=== PATIENT | female | born 1970 | race Caucasian/White ===

== ENCOUNTER 2016-12-16 15:22 | Inpatient (IN) | payer MEDICAID ==
[~2016-12-16] VITALS: Ht 165.1 cm; Wt 99.8 kg
[~2016-12-16 15:22] MED LIST: DILA100C PO; LORA-474 PO; PHEN100 PO
[2016-12-20] MEDS ORDERED: METRONIDAZOLE 500 MG/100 ML ISONTONIC SOLN IV SCH (06:15)
[2016-12-20] MEDS ORDERED: HEPARIN SODIUM - SQ 10,000 UNITS/ML VIAL SQ SCH (06:15)
[2016-12-20] MEDS ORDERED: METOPROLOL TARTRATE 25 MG TAB PO PRN (06:30)
[2016-12-20] MEDS ORDERED: LACTATED RINGER'S 1000 ML IV SCH (06:30)
[2016-12-20] MEDS ORDERED: SODIUM CHLORID 0.9% 500 ML IV SCH (06:30)
[2016-12-20] MEDS ORDERED: LEVOFLOXACIN 500 MG PREMIX INJ 100 ML IV SCH (06:30)
[2016-12-20] MEDS ORDERED: INSULIN HUMAN REGULAR 1,000 UNITS/10 ML VIAL SQ PRN (06:30)
[2016-12-20] MEDS ORDERED: ZOFR4TAB PO (06:40)
[2016-12-20] MEDS ORDERED: DEPA500T3 PO (06:40)
[2016-12-20] MEDS ORDERED: DILA100C PO (06:40)
[2016-12-20] MEDS ORDERED: NAPR220T95 PO (06:40)
[2016-12-20] MEDS ORDERED: PRIL20CA9 PO (06:40)
[2016-12-20] MEDS ORDERED: MORP1TAB24 PO (06:40)
[2016-12-20] MEDS ORDERED: LISI10TA3 PO (06:40)
[2016-12-20 06:50] VITALS: BP 105/70; PULSE 66; RESP 16; TEMP 98.2; O2SAT 98
[2016-12-20] MEDS ORDERED: LIDOCAINE 1%/EPINEPHrine 1:100,000 SOLN 30 ML VIAL ONE (06:56)
[2016-12-20] MEDS ORDERED: ARTIFICIAL TEARS OPTH OINT 3.5 APPLIC/3.5 GM TUBO ONE (07:19)
[2016-12-20] MEDS ORDERED: FAMOTIDINE 20 MG/2 ML VIAL ONE (07:19)
[2016-12-20] MEDS ORDERED: DEXAMETHASONE SOD PHOS 4 MG/ML VIAL ONE (07:20)
[2016-12-20] MEDS ORDERED: SUGAMMADEX SODIUM 200 MG/2 ML VIAL IV PUSH ONE ×2 (07:20)
[2016-12-20] MEDS ORDERED: MIDAZOLAM HCL 2 MG/2 ML VIAL ONE (07:20)
[2016-12-20] MEDS ORDERED: LACTATED RINGER'S 1000 ML INJ 1,000 ML IV ONE (12:00)
[2016-12-20] MEDS ORDERED: PROPOFOL 200 MG/20 ML AMP IV ONE (12:00)
[2016-12-20] MEDS ORDERED: VECURONIUM BROMIDE 10 MG VIAL IV ONE (12:00)
[2016-12-20] MEDS ORDERED: ONDANSETRON HCL 4 MG/2 ML VIAL IV PUSH ONE (12:00)
[2016-12-20] MEDS ORDERED: NORMOSOL R INJ 2,000 ML IV ONE (12:00)
[2016-12-20] MEDS ORDERED: NEOSTIGMINE 3 MG/3 ML SYR IV ONE (12:00)
[2016-12-20] MEDS ORDERED: FERRIC SUBSULFATE 8 ML TOP SOLN TOPICAL ONE (12:32)
[2016-12-20] MEDS ORDERED: diphenhydrAMINE HCL 25 MG CAP PO PRN (13:00)
[2016-12-20] MEDS ORDERED: NALOXONE HCL 0.4 MG/ML AMP IV PRN (13:00)
[2016-12-20] MEDS ORDERED: SODIUM CHLORIDE 0.9% FLUSH 5 ML FLUSH FLUSH PRN (13:00)
[2016-12-20] MEDS ORDERED: DO NOT ADM ANY ANTICOAGULANT DRUGS XX PRN (13:15)
[2016-12-20] MEDS ORDERED: *morphine SULFATE 8 MG/ML PERIprocedure ONLY ONE (13:50)
[2016-12-20] MEDS ORDERED: fentaNYL CITRATE 250 MCG/5 ML AMP ONE (13:53)
[2016-12-20] MEDS ORDERED: MORPHINE SULFATE 4 MG/ML INJ ONE (13:53)
[2016-12-20] MEDS: PCA - TOTAL MG MORPHINE DELIVERED PER SHIFT SCH ×2 (14:00→22:28)
[2016-12-20] MEDS: D5-1/2 NS + KCL 20 MEQ INJ 1,000 ML IV SCH ×2 (15:00→22:51)
[2016-12-20 15:54] LABS: HEMATOCRIT 37.4 % (35.0-46.0); MEAN CELL VOLUME 109.3 FL (80.0-100.0); MEAN CORPUSCULAR HEMOGLOBIN 36.6 PG (27.0-34.0); MEAN CORPUSCULAR HGB CONC 33.5 % (32.0-36.0); PLATELET COUNT 229 TH/MM3 (150-450); RED BLOOD COUNT 3.42 MIL/MM3 (4.00-5.30); RED CELL DISTRIBUTION WIDTH 15.4 % (11.6-17.2); REVIEW FLAG FINAL
[2016-12-20] MEDS: MORPHINE SULFATE 30 MG/30 ML PCA IV SCH (15:55)
[2016-12-20 16:19] LABS: BICARBONATE 23.5 MEQ/L (21.0-32.0); POTASSIUM 4.1 MEQ/L (3.5-5.1)
--- NOTE | 2016-12-20 17:18 | PD.ONC.PN ---
Subjective Subjective Remarks post op note pt seen in PACU awaiting bed FISCAL ANALYST for pain sleepy, wakens to voice Objective Data Date Time Temp Pulse Resp B/P Pulse Ox O2 Delivery O2 Flow Rate FiO2 12/20/16 16:00 94 16 127/89 100 Nasal Cannula 2 12/20/16 15:55 16 12/20/16 15:45 90 16 127/89 100 Nasal Cannula 2 12/20/16 15:30 95 16 143/92 100 Nasal Cannula 2 12/20/16 15:15 90 16 143/92 100 Nasal Cannula 2 12/20/16 15:00 90 16 142/87 100 Nasal Cannula 2 12/20/16 14:45 89 16 142/91 100 Nasal Cannula 2 12/20/16 14:30 90 16 145/92 100 Nasal Cannula 2 12/20/16 14:15 89 16 145/89 100 Nasal Cannula 2 12/20/16 14:00 88 16 143/91 100 Nasal Cannula 2 12/20/16 13:45 86 16 144/91 100 Nasal Cannula 2 12/20/16 13:32 98.0 87 16 144/91 100 Nasal Cannula 2 12/20/16 06:50 98.2 66 16 105/70 98 12/20/16 12/20/16 12/20/16 07:00 15:00 23:00 Intake Total 2200 ml Output Total 850 ml Balance 1350 ml Result Diagram: 12/20/16 1547 12/20/16 1547 Laboratory Results Laboratory Tests Test 12/20/16 12/20/16 12/20/16 12/20/16 06:30 10:05 10:13 15:47 Blood Type O POSITIVE O POSITIVE O POSITIVE Antibody Screen NEGATIVE Blood Bank Comment Crossmatch Leukocyte-Reduced Red Blood Cells White Blood Count 13.0 TH/MM3 Red Blood Count 3.42 MIL/MM3 Hemoglobin 12.5 GM/DL Hematocrit 37.4 % Mean Corpuscular Volume 109.3 FL Mean Corpuscular Hemoglobin 36.6 PG Mean Corpuscular Hemoglobin 33.5 % Concent Red Cell Distribution Width 15.4 % Platelet Count 229 TH/MM3 Mean Platelet Volume 8.3 FL Sodium Level 140 MEQ/L Potassium Level 4.1 MEQ/L Chloride Level 106 MEQ/L Carbon Dioxide Level 23.5 MEQ/L Anion Gap 11 MEQ/L Blood Urea Nitrogen 8 MG/DL Creatinine 0.95 MG/DL Estimat Glomerular Filtration 63 ML/MIN Rate Random Glucose 169 MG/DL Calcium Level 8.1 MG/DL Administered Medications Medications (Trade) Dose Ordered Sig/Etienne Route PRN Reason Start Time Stop Time Status Last Admin Dose Admin Potassium Chloride/Dextrose/ Sod Cl (D5-1/2 NS + KCl 20 Meq Inj) 1,000 ml @ 100 mls/hr Q10H IV 12/20/16 12:51 12/20/16 15:00 Morphine Sulfate (Morphine 1 Mg/ ml FISCAL ANALYST) 30 mg UNSCH IV 12/20/16 13:00 12/20/16 15:55 Objective Remarks GENERAL: Well-nourished, well-developed patient. SKIN: Warm and dry. HEAD: Normocephalic. EYES: No scleral icterus. No injection or drainage. CARDIOVASCULAR: Regular rate and rhythm without murmurs. RESPIRATORY: Breath sounds equal bilaterally. No accessory muscle use. GASTROINTESTINAL: abd dressing c/d/i EXTREMITIES: teds and scds MUSCULOSKELETAL: Adequate muscle tone. NEUROLOGICAL: sleepy awakens to voice Assessment/Plan Problem List: (1) Ovarian cancer Status: Acute Plan: s/p XLap for hyst with bso and tumor debulking (2) Post-operative state Status: Acute Plan: s/p Xlap for hyst with bso and tumor debulking FISCAL ANALYST for pain post op orders in chart ADAT encourge deep breathing IS to bedside OOB to chair tomorrow anticipate d/c from hospital in aprox 72 hours Linda Hammond Dec 20, 2016 17:17
[2016-12-20 18:10] VITALS: BP 121/82; PULSE 97; RESP 16; TEMP 97.6; O2SAT 99
[2016-12-20 19:48] VITALS: O2SAT 96
[2016-12-20] MEDS: PHENYTOIN SODIUM 100 MG CAP PO SCH (21:29)
[2016-12-20] MEDS: DIVALPROEX SODIUM E.R. 500 MG TAB PO SCH (21:46)
[2016-12-20] MEDS: PANTOPRAZOLE SOD 20 MG DELAYED RELEASE TAB PO SCH (21:46)
[2016-12-20] MEDS: NAPROXEN SODIUM 550 MG TAB PO SCH (21:46)
[2016-12-20] MEDS: SODIUM CHLORIDE 0.9% FLUSH 5 ML FLUSH FLUSH SCH (21:46)
[2016-12-21] VITALS (8 sets, daily range): BP systolic 112–131; BP diastolic 63–79; PULSE 86–106; RESP 16–18; TEMP 97.7–99.4; O2SAT 90–96
[2016-12-21] MEDS: MORPHINE SULFATE 30 MG/30 ML PCA IV SCH ×2 (02:34→19:50)
[2016-12-21] MEDS: D5-1/2 NS + KCL 20 MEQ INJ 1,000 ML IV SCH ×2 (02:36→19:52)
[2016-12-21] MEDS: PCA - TOTAL MG MORPHINE DELIVERED PER SHIFT SCH ×3 (05:50→22:00)
[2016-12-21] MEDS: LORazepam 0.5 MG TAB PO PRN ×2 (06:50→15:03)
[2016-12-21] MEDS: SODIUM CHLORIDE 0.9% FLUSH 5 ML FLUSH FLUSH SCH ×2 (08:46→19:53)
[2016-12-21] MEDS: LISINOPRIL 10 MG TAB PO SCH (08:47)
[2016-12-21] MEDS: NAPROXEN SODIUM 550 MG TAB PO SCH ×2 (08:47→19:54)
[2016-12-21] MEDS: ONDANSETRON ODT 4 MG TAB PO PRN (11:10)
[2016-12-21 12:03] LABS: AUTOMATED NEUTROPHIL # 6.4 TH/MM3 (1.8-7.7); BASOPHIL # 0.1 TH/MM3 (0-0.2); BASOPHIL % 0.6 % (0.0-2.0); EOSINOPHIL % 0.4 % (0.0-4.0); HEMATOCRIT 31.4 % (35.0-46.0); HEMO FLAGS DIFF FINAL; LYMPH % 23.5 % (9.0-44.0); LYMPHOCYTE # 2.2 TH/MM3 (1.0-4.8); MEAN CELL VOLUME 108.6 FL (80.0-100.0); MEAN CORPUSCULAR HEMOGLOBIN 36.8 PG (27.0-34.0); MEAN CORPUSCULAR HGB CONC 33.9 % (32.0-36.0); NEUT % 67.5 % (16.0-70.0); PLATELET COUNT 206 TH/MM3 (150-450); RED BLOOD COUNT 2.89 MIL/MM3 (4.00-5.30); RED CELL DISTRIBUTION WIDTH 15.4 % (11.6-17.2); WHITE BLOOD COUNT 9.4 TH/MM3 (4.0-11.0)
[2016-12-21 12:24] LABS: BICARBONATE 28.6 MEQ/L (21.0-32.0); POTASSIUM 3.8 MEQ/L (3.5-5.1)
[2016-12-21] MEDS: PANTOPRAZOLE SOD 20 MG DELAYED RELEASE TAB PO SCH (19:51)
[2016-12-21] MEDS: PHENYTOIN SODIUM 100 MG CAP PO SCH (19:52)
[2016-12-21] MEDS: DIVALPROEX SODIUM E.R. 500 MG TAB PO SCH (19:54)
[2016-12-22] VITALS: BP 140/81; PULSE 105; RESP 18; TEMP 99.5; O2SAT 93
[2016-12-22 04:00] VITALS: BP 116/73; PULSE 104; RESP 16; TEMP 98.5; O2SAT 94
[2016-12-22] MEDS: D5-1/2 NS + KCL 20 MEQ INJ 1,000 ML IV SCH ×2 (04:51→14:51)
[2016-12-22] MEDS: PCA - TOTAL MG MORPHINE DELIVERED PER SHIFT SCH ×3 (06:00→20:56)
--- NOTE | 2016-12-22 07:35 | PD.ONC.PN ---
Subjective Subjective Remarks POD #2 Pt is sitting up in a chair sleeping, awakens to voice states that she has pain but it is controlled with PLANT TECHNICAL SPECIALIST pump I explained to her that we will keep PLANT TECHNICAL SPECIALIST today but will D/C tomorrow and change to oral pain meds she states she is having some reflux and take Prilosec at home that works so I will add PPI Gipson and IVF have been D/C' d RN reports she has not urinated yet. IS at bedside and I instructed use Objective Data Date Time Temp Pulse Resp B/P Pulse Ox O2 Delivery O2 Flow Rate FiO2 12/22/16 04:00 98.5 104 16 116/73 94 12/22/16 00:00 99.5 105 18 140/81 93 12/21/16 22:00 16 12/21/16 20:45 99.4 106 18 116/75 94 12/21/16 20:03 18 12/21/16 19:50 18 12/21/16 16:00 97.8 97 16 124/71 90 12/21/16 15:00 16 12/21/16 12:37 97.9 86 16 112/63 95 12/21/16 08:55 96 Nasal Cannula 1.00 12/21/16 08:00 98.4 92 16 121/72 95 Result Diagram: 12/21/16 1120 12/21/16 1120 Laboratory Results Laboratory Tests Test 12/21/16 11:20 White Blood Count 9.4 TH/MM3 Red Blood Count 2.89 MIL/MM3 Hemoglobin 10.6 GM/DL Hematocrit 31.4 % Mean Corpuscular Volume 108.6 FL Mean Corpuscular Hemoglobin 36.8 PG Mean Corpuscular Hemoglobin 33.9 % Concent Red Cell Distribution Width 15.4 % Platelet Count 206 TH/MM3 Mean Platelet Volume 8.9 FL Neutrophils (%) (Auto) 67.5 % Lymphocytes (%) (Auto) 23.5 % Monocytes (%) (Auto) 8.0 % Eosinophils (%) (Auto) 0.4 % Basophils (%) (Auto) 0.6 % Neutrophils # (Auto) 6.4 TH/MM3 Lymphocytes # (Auto) 2.2 TH/MM3 Monocytes # (Auto) 0.8 TH/MM3 Eosinophils # (Auto) 0.0 TH/MM3 Basophils # (Auto) 0.1 TH/MM3 CBC Comment DIFF FINAL Differential Comment Sodium Level 140 MEQ/L Potassium Level 3.8 MEQ/L Chloride Level 105 MEQ/L Carbon Dioxide Level 28.6 MEQ/L Anion Gap 6 MEQ/L Blood Urea Nitrogen 7 MG/DL Creatinine 0.74 MG/DL Estimat Glomerular Filtration 84 ML/MIN Rate Random Glucose 102 MG/DL Calcium Level 8.2 MG/DL Administered Medications Medications (Trade) Dose Ordered Sig/Etienne Route PRN Reason Start Time Stop Time Status Last Admin Dose Admin Pantoprazole Sodium (Protonix) 20 mg HS PO 12/20/16 21:00 12/21/16 19:51 Phenytoin (Dilantin) 300 mg HS PO 12/20/16 21:00 12/21/16 19:52 Ondansetron HCl 4 mg 4 mg Q6HR PRN PO NAUSEA OR VOMITING 12/20/16 13:00 12/21/16 11:10 Potassium Chloride/Dextrose/ Sod Cl (D5-1/2 NS + KCl 20 Meq Inj) 1,000 ml @ 100 mls/hr Q10H IV 12/20/16 12:51 12/21/16 19:52 Lorazepam (Ativan) 0.5 mg Q8H PRN PO ANXIETY 12/20/16 13:00 12/21/16 15:03 Morphine Sulfate (Morphine 1 Mg/ ml PLANT TECHNICAL SPECIALIST) 30 mg UNSCH IV 12/20/16 13:00 12/21/16 19:50 PLANT TECHNICAL SPECIALIST Dosage Infused (Pha) 1 Q8HR .XX 12/20/16 14:00 12/21/16 22:00 Objective Remarks GENERAL: Well-nourished, well-developed patient. SKIN: Warm and dry. HEAD: Normocephalic. EYES: No scleral icterus. No injection or drainage. CARDIOVASCULAR: Regular rate and rhythm without murmurs. RESPIRATORY: Breath sounds equal bilaterally. No accessory muscle use. GASTROINTESTINAL: Abdomen dressing is C/D/I EXTREMITIES: teds and scds MUSCULOSKELETAL: Adequate muscle tone. NEUROLOGICAL: No obvious focal deficit. Awake, alert, to voice Assessment/Plan Problem List: (1) Ovarian cancer Status: Acute Plan: s/p XLap for hyst with bso and tumor debulking (2) Post-operative state Status: Acute Plan: s/p Xlap for hyst with bso and tumor debulking PLANT TECHNICAL SPECIALIST for pain post op orders in chart encourage advance diet IS at bedside and encourage use OOB to chair today ambulate today TID gipson d/cd IVF d/cd will d/c PLANT TECHNICAL SPECIALIST tomorrow and change to oral pain meds anticipate d/c home in next [address] Franco is in agreement with this plan of care. Linda Hammond Dec 22, 2016 07:35
[2016-12-22 08:00] VITALS: BP 115/71; PULSE 102; RESP 18; TEMP 97.8; O2SAT 94
[2016-12-22] MEDS: ONDANSETRON ODT 4 MG TAB PO PRN (08:51)
[2016-12-22] MEDS: NAPROXEN SODIUM 550 MG TAB PO SCH ×2 (08:53→20:53)
[2016-12-22] MEDS: SODIUM CHLORIDE 0.9% FLUSH 5 ML FLUSH FLUSH SCH ×2 (08:53→20:54)
[2016-12-22] MEDS: LISINOPRIL 10 MG TAB PO SCH (08:53)
[2016-12-22 12:00] VITALS: BP 147/56; PULSE 105; RESP 18; TEMP 98.6; O2SAT 95
[2016-12-22 16:00] VITALS: BP 99/63; PULSE 110; RESP 18; TEMP 98.9; O2SAT 92
--- NOTE | 2016-12-22 17:41 | RADRPT ---
EXAM DATE/TIME: 12/22/2016 16:52 [facility] COMPARISON: No previous studies available for comparison. INDICATIONS : Left arm swelling. MEDICAL HISTORY : Carcinoma, ovarian. Gastroesophageal reflux disease. Renal calculi. HTN. Seizures. Neuropathy. TIA. I rregular heartbeat. Asthma. Pneumonia. Ectopic . Arthritis. Manic depression. Bipolar disor anna. Anxiety. SURGICAL HISTORY : Tonsillectomy. Cholecystectomy. section. Left eye surgery. Right ear surgery. Adenoidectomy . IUD placed and removed. D&C. Laser to left kidney for stone. Sinus surgery. Right foot surgery. ENCOUNTER: Initial ACUITY: 1 day PAIN SCORE: 0/10 LOCATION: Left arm. FINDINGS: There is spontaneous flow documented in the brachial, basilic, cephalic, axillary, and subclavian vei ns. The vessels are compressible and augmentation response is documented. No filling defects are se en. The flow is phasic with respiration. Direction of flow in the jugular vein is caudal. CONCLUSION: Normal left upper extremity venous Doppler. No DVT. Luis Beard MD on December 22, 2016 at 17:39 Board Certified Radiologist. This report was verified electronically.
[2016-12-22 20:00] VITALS: BP 106/57; PULSE 105; RESP 18; TEMP 98.6; O2SAT 92
[2016-12-22] MEDS: DIVALPROEX SODIUM E.R. 500 MG TAB PO SCH (20:53)
[2016-12-22] MEDS: PHENYTOIN SODIUM 100 MG CAP PO SCH (20:53)
[2016-12-22] MEDS ORDERED: PANTOPRAZOLE SOD 20 MG DELAYED RELEASE TAB PO SCH (21:00)
[2016-12-23 00:30] VITALS: BP 107/57; PULSE 94; RESP 18; TEMP 99.9; O2SAT 93
[2016-12-23] MEDS: D5-1/2 NS + KCL 20 MEQ INJ 1,000 ML IV SCH (00:51)
[2016-12-23 04:15] VITALS: BP 99/51; PULSE 93; RESP 18; TEMP 97; O2SAT 96
[2016-12-23] MEDS: MORPHINE SULFATE 30 MG/30 ML PCA IV SCH (04:54)
[2016-12-23] MEDS: PCA - TOTAL MG MORPHINE DELIVERED PER SHIFT SCH (06:00)
[2016-12-23] MEDS: SODIUM CHLORIDE 0.9% FLUSH 5 ML FLUSH FLUSH SCH ×2 (07:13→09:04)
[2016-12-23] MEDS: NAPROXEN SODIUM 550 MG TAB PO SCH (07:14)
[2016-12-23 08:00] VITALS: BP 103/66; PULSE 96; RESP 20; TEMP 98; O2SAT 92
--- NOTE | 2016-12-23 08:40 | PD.ONC.PN ---
Subjective Subjective Remarks pt is sitting up in a chair asleep awakens to voice ambulating very short distances using IS not eating much, encourage to increase intake Objective Data Date Time Temp Pulse Resp B/P Pulse Ox O2 Delivery O2 Flow Rate FiO2 12/23/16 07:15 Room Air 12/23/16 06:30 18 12/23/16 06:00 95 Room Air 12/23/16 06:00 18 12/23/16 04:54 18 12/23/16 04:15 97.0 93 18 99/51 96 12/23/16 00:30 99.9 94 18 107/57 93 12/22/16 20:56 16 12/22/16 20:00 98.6 105 18 106/57 92 12/22/16 16:00 98.9 110 18 99/63 92 12/22/16 14:33 16 12/22/16 12:00 98.6 105 18 147/56 95 12/23/16 12/23/16 12/23/16 07:00 15:00 23:00 Output Total 700 ml Balance -700 ml Result Diagram: 12/21/16 1120 12/21/16 1120 Administered Medications Medications (Trade) Dose Ordered Sig/Etienne Route PRN Reason Start Time Stop Time Status Last Admin Dose Admin Lisinopril (Prinivil) 10 mg DAILY PO 12/21/16 09:00 12/22/16 08:53 Phenytoin (Dilantin) 300 mg HS PO 12/20/16 21:00 12/22/16 20:53 Ondansetron HCl 4 mg 4 mg Q6HR PRN PO NAUSEA OR VOMITING 12/20/16 13:00 12/22/16 08:51 Potassium Chloride/Dextrose/ Sod Cl (D5-1/2 NS + KCl 20 Meq Inj) 1,000 ml @ 100 mls/hr Q10H IV 12/20/16 12:51 12/21/16 19:52 Diphenhydramine HCl (Benadryl) 25 mg Q6H PRN PO ITCHING 12/20/16 13:00 12/22/16 15:02 Lorazepam (Ativan) 0.5 mg Q8H PRN PO ANXIETY 12/20/16 13:00 12/21/16 15:03 Morphine Sulfate (Morphine 1 Mg/ ml MEMBERSHIP CORRESPONDENT) 30 mg UNSCH IV 12/20/16 13:00 12/23/16 04:54 MEMBERSHIP CORRESPONDENT Dosage Infused (Pha) 1 Q8HR .XX 12/20/16 14:00 12/23/16 06:00 Pantoprazole Sodium (Protonix) 40 mg HS PO 12/22/16 21:00 12/22/16 20:54 Objective Remarks GENERAL: Well-nourished, well-developed patient. SKIN: Warm and dry. HEAD: Normocephalic. EYES: No scleral icterus. No injection or drainage. NECK: Supple CARDIOVASCULAR: Regular rate and rhythm without murmurs. RESPIRATORY: Breath sounds equal bilaterally. No accessory muscle use. GASTROINTESTINAL: Abdomen dressing C/D/I EXTREMITIES: TEDS MUSCULOSKELETAL: Adequate muscle tone. NEUROLOGICAL: No obvious focal deficit. Awake to voice Assessment/Plan Problem List: (1) Ovarian cancer Status: Acute Plan: POD # 3 s/p XLap for hyst with bso and tumor debulking (2) Post-operative state Status: Acute Plan: s/p Xlap for hyst with bso and tumor debulking POD #3 MEMBERSHIP CORRESPONDENT D/C's today will change to oral Dilaudid 2mg q 4 hours prn pain post op orders in chart encourage intake IS at bedside and encourage use OOB to chair today ambulate today TID bathroom to urinate IVF d/c'd anticipate home tomorrow or possible rehab (?) Linda Hammond Dec 23, 2016 08:40
[2016-12-23] MEDS: HYDROmorphone HCL 2 MG TAB PO PRN ×2 (09:03→12:59)
[2016-12-23] MEDS: LORazepam 0.5 MG TAB PO PRN (09:03)
[2016-12-23] MEDS: LISINOPRIL 10 MG TAB PO SCH (09:03)
[2016-12-23] MEDS ORDERED: DILA2TAB2 PO (09:53)
--- NOTE | 2016-12-23 10:05 | HHI.DS ---
Discharge Summary Admission Date Dec 20, 2016 at 05:50 Discharge Date: Dec 23, 2016 Admitting Diagnosis ovarian cancer (1) Ovarian cancer Diagnosis: Principal Procedures Xlap for hysterectomy with BSO and tumor debulking Brief History This is a 46 year old with diagnosis of ovarian cancer clinical stage IIIC. She is s/p 6 cycles of IV chemotherapy under the direction of Dr. Montoya and presented to per diem nurse/onc office for consideration of tumor debulking surgery. CBC/BMP: 12/21/16 1120 12/21/16 1120 Significant Findings Laboratory Tests Test 12/20/16 12/21/16 15:47 11:20 White Blood Count 13.0 TH/MM3 (4.0-11.0) Red Blood Count 3.42 MIL/MM3 2.89 MIL/MM3 (4.00-5.30) (4.00-5.30) Mean Corpuscular Volume 109.3 FL 108.6 FL (80.0-100.0) (80.0-100.0) Mean Corpuscular Hemoglobin 36.6 PG 36.8 PG (27.0-34.0) (27.0-34.0) Estimat Glomerular Filtration 63 ML/MIN (>89) 84 ML/MIN (>89) Rate Random Glucose 169 MG/DL (74-106) Calcium Level 8.1 MG/DL 8.2 MG/DL (8.5-10.1) (8.5-10.1) Hemoglobin 10.6 GM/DL (11.6-15.3) Hematocrit 31.4 % (35.0-46.0) Imaging Last Impressions Upper Extremity Ultrasound 12/22/16 0000 Signed Impressions: Service Date/Time: Thursday, December 22, 2016 16:52 - CONCLUSION: Normal left upper extremity venous Doppler. No DVT. Luis Beard MD PE at Discharge Pt is Alert and oriented X 3 in NAD heart: RRR no MMR lungs CTA bilat abd dressing C/D/I + BS X 4 ext: no swelling or edema Hospital Course Patient's hospital course was uneventful. She was recovered in PACU then transferred to [facility] with FENCE MAKING MACHINE OPERATOR pump for pain control. U/S was obtained to left upper ext for swelling and erythema with no DVT reported. Abdominal dressing remained C/D/I. Pt Condition on Discharge: Good Discharge Disposition: Discharge Home Discharge Instructions DIET: Follow Instructions for: As Tolerated, No Restrictions Activities you can perform: Pelvic Rest Activities to avoid: Lifting/Bending, Strenuous Activity, Driving, Sexual Activity Additional Activity Instructio: pelvic rest Follow up Referrals: Appointment for Follow Up - 2 Weeks @ [facility] New Medications: Hydromorphone (Dilaudid) 2 Mg Tab 2 MG PO Q4H PRN PAIN #24 Ref 0 TAB Continued Medications: Divalproex ER (Depakote ER) 500 Mg Zee 1000 MG PO HS Control Seizures #60 Ref 0 TAB Lisinopril (Lisinopril) 10 Mg Tab 10 MG PO DAILY #30 Ref 0 TAB Naproxen Sodium (Aleve) 220 Mg Tab 440 MG PO BID PRN Pain Management Ref 0 TAB Omeprazole (Prilosec) 20 Mg Cap 20 MG PO HS #30 Ref 0 CAP Ondansetron (Zofran) 4 Mg Tab 4 MG PO Q6HR PRN NAUSEA OR VOMITING Ref 0 TAB Phenytoin Extended (Dilantin) 100 Mg Cap 300 MG PO HS Control Seizures #270 Ref 0 CAP Discontinued Medications: Morphine ER (Morphine ER) 15 Mg Tab 15 MG PO Q8H PRN PAIN SCALE 1 TO 10 Ref 0 TAB Linda Hammond Dec 23, 2016 10:05
[2016-12-23 12:00] VITALS: BP 108/66; PULSE 97; RESP 18; TEMP 97.8; O2SAT 92
--- NOTE | 2017-01-11 08:03 | MP ---
cc: THOMAS GIVENS M.D., KELLY L. MD DATE OF SURGERY: 12/20/2016 PREOPERATIVE DIAGNOSIS 1. Ovarian cancer. 2. Status post neoadjuvant chemotherapy. POSTOPERATIVE DIAGNOSIS 1. Ovarian cancer. 2. Status post neoadjuvant chemotherapy. 3. Extensive intraperitoneal adhesions. PROCEDURE Laparoscopy converted to exploratory laparotomy, supracervical hysterectomy, bilateral salpingo-oophorectomy, omentectomy, tumor debulking, extensive lysis of adhesions. SURGEON Jimena Franco RECOATING MACHINE OPERATOR [employer] Edge Machine Operator ESTIMATED BLOOD LOSS 500 cc. URINE OUTPUT 350 cc. IV FLUIDS 1000 cc. 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 There had been a clinical and biochemical improvement with response to treatment as her CA-125 had been declining and the ascites had resolved and the tumor burden reduced. However, the CA-125 between the third and fourth cycle of neoadjuvant chemotherapy plateaued and actually elevated a bit. She was counseled regarding the potential benefit of surgical intervention. She is seen in the pre-op holding area where findings and considerations are again discussed and reviewed. She expressed good understanding and wished to move forward with surgery. FINDINGS Upon laparoscopic entry into the peritoneal cavity it became apparent that the extensive tumor in the omentum was completely adherent to the anterior abdominal wall and densely adherent to the transverse colon especially near the hepatic flexure. The tumor in the pelvis was still relatively fixed. Although there had been some obvious response to chemotherapy, the burden of tumor was still fairly significant and felt that it could not be adequately addressed laparoscopically. At the completion of the case the majority of the tumor was resected. The majority of the tumor was within the omentum and the ovaries and adjacent tissues. The distal portion of the cervix was left in situ due to dense adhesions between the cervix and the adjacent bladder and adjacent rectum with some infiltrative tumor in that region. There was also some infiltrative plaque of tumor near the hepatic flexure of the transverse colon. There were also nodular implants that persisted on the wall of the bowel at the root of the mesentery that were not thought amenable to surgical resection. STATEMENT OF COMPLEXITY The complexity of this case was significantly increased due to the extensive intraperitoneal adhesions and significant amount of time was spent lysing adhesions just to gain safe entry into the peritoneal cavity to restore anatomy and try to accomplish surgical objectives. Modifier should be applied accordingly. DETAILS OF PROCEDURE The patient was taken to the operating room and placed in the dorsal lithotomy position after general endotracheal anesthesia was administered and a timeout was undertaken. The patient was identified by sight recognition and hospital ID bracelet and the proposed procedure was reviewed and confirmed. She was carefully positioned in padded stirrups and arms secured. All sites were noted to be properly aligned with no malalignments or pressure points, prepped and draped in sterile fashion. She was placed in lithotomy position, cervix grasped, uterine cavity sounded. Cervix dilated. VCare manipulator inserted and secured in the usual fashion. A Herrera catheter was placed in the bladder. She was returned to low lithotomy position. Change of sterile gloves was undertaken. We completed draping in anticipation of laparoscopy. We confirmed that an orogastric airway was in the stomach on suction. With manual elevation of the abdominal wall and direct laparoscopic visualization, a 5 mm cannula was introduced into the left upper quadrant. Carbon dioxide gas was insufflated. The entry had gone through a window in the omentum as the omentum was plastered to the anterior abdominal wall and under laparoscopic visualization a cannula was placed in the left lateral quadrant. Now that a camera was placed in the left lateral quadrant, cannula to better inspect the anatomy in the abdomen, the initial entry point was through a window of omentum. There was no bleeding and were several centimeters away from the transverse colon. The anatomy was surveyed with findings as described above. It was determined that this could not be adequately addressed laparoscopically so decision was made to convert to laparotomy. A midline vertical incision was made from the symphysis to the umbilicus, carried down to the level of the fascia. The fascia was entered, rectus muscles were as the fascia was entered. The peritoneal cavity was entered. The incision was extended above the umbilicus. To gain entry into the peritoneal cavity sharp dissection was used to dissect the omental tumor from its adherence to the anterior abdominal wall. This was continued starting at the distal omentum, dissecting proximally until the omentum was free from its adhesions to the abdominal wall. Loops of small bowel were dissected free from the omentum until it was isolated at its origin on the transverse colon Sharp dissection was used to remove the omental tumor from along the transverse colon starting near the splenic flexure, dissecting toward the hepatic flexure where there was a plaque of tumor that seemed to be invasive, very densely adherent. It was reduced in size and thinned to the extent possible without disruption to the integrity of the bowel and the specimen was removed. Nodular densities on the peritoneum that could be resected were resected. Attention was directed toward the pelvis. Lap pads and a Bookwalter retractor were set up to assist in surgical exposure. The ovaries were both enlarged, replaced with tumor and fixed to adjacent structures. The right round ligament was isolated, doubly suture ligated and transected. The anterior and posterior leafs of the broad ligament were opened. The right ureter was identified. The right infundibulopelvic ligament was isolated, doubly clamped, cut and suture ligated. Additional peritoneal dissection was carried out to mobilize the right tube and ovary to initiate dissection of the posterior peritoneum. As noted above the rectum was densely adherent to the posterior wall of the cervix with what seemed to be infiltrative thin plaque of tumor fixing the structure. Similarly initiation was done of dissecting the vesicouterine peritoneum off the lower uterine segment. This was carried down to the level of the cervix where the bladder seemed densely adherent due to infiltrative tumor. The right uterine vessels were skeletonized, doubly clamped, cut and suture ligated as were the cardinal and additional paracervical ligaments. Attention was directed toward the left side. The left round ligament was isolated after additional lysis of adhesions, doubly suture ligated. The anterior and posterior leafs of the broad ligament were opened as the round ligament was transected. Additional lysis of adhesion was carried out to mobilize the colon from its overlying attachments to the adnexa. Dissection was carried proximally as the left ureter was identified. The left infundibulopelvic ligament was isolated and the infundibulopelvic ligament was doubly clamped, cut and suture ligated. Dissection was carried out to free the adnexa from adjacent structures to lyse adhesions and remove nodularity and tumor from the posterior cul-de-sac until the left tube and ovary could be isolated. Posterior dissection was initiated on the left side and the left vesicouterine peritoneum was dissected off the lower uterine segment and upper portion of the cervix and the uterine vessels were skeletonized. The uterine vessels were clamped, cut and suture ligated as were the cardinal and paracervical ligaments. Additional dissection and inspection felt that morbidity to try to remove the lower portion of the cervix may exceed benefit as there may be loss of integrity to the bladder and/or bowel, and so specimen was removed leaving the distal cervix intact, transecting midway through the cervix such that the specimen included uterus, proximal cervix, bilateral tubes and ovaries with attached tumor. The cervical stump was oversewn with interrupted [id number] Vicryl sutures, rendered hemostatic. Small bleeders were rendered hemostatic with cautery. The VCare manipulator had been removed from the cervix and uterus and hemostatic Kevin powder was placed in the pelvis. Further inspection revealed the liver and diaphragm edges to be smooth. The residual tumor was as described. Any other nodules that were amenable to surgical resection were removed. There was some persistent tumor as described above. It was felt that all reasonable surgical objectives balancing benefit from surgery and minimizing morbidity had been accomplished The lap pads and Bookwalter retractor were removed. Inspection was carried out. There were no remaining foreign objects in the peritoneal cavity. Preliminary counts were correct and attention was directed toward closing. The abdominal wall was closed with a running 0 looped PDS in a modified Smead-Dhillon fashion starting at the apices and meeting in the midpoint where the sutures were tied. Subcutaneous tissue was irrigated. Derrell's fascia was re-approximated with 2-0 Vicryl sutures and the skin edges closed with a running 3-0 subcuticular. The laparoscopic incisions were closed with subcutaneous 3-0 Vicryl sutures. Steri-Strips were placed over all of these incisions. She was returned to dorsal lithotomy position. Pelvic exam confirmed there were no remaining foreign objects in the vagina. Preliminary and final counts were correct. She was returned to dorsal supine position and was pending reversal of anesthesia when I left the operating room to precede her to the post-anesthesia care unit. MD HEATH Thomason/MATEUSZ /7:26 AM /7:34 AM
== END 2016-12-23 14:41 | disposition home or self-care (01) | DRG 737 ==
LOC: HSDI 12-20 05:50 → EDSTATUS 12-20 07:30 → HOCA 12-20 18:10
PROVIDERS: ADMIT Obstetrics & Gynecology Gynecologic Oncology; ATTEND Obstetrics & Gynecology Gynecologic Oncology
PROC: 0UT90ZZ Resection of Uterus, Open Approach (ICD-10-PCS; 2016-12-20)
PROC: 0UT70ZZ Resection of Bilateral Fallopian Tubes, Open Approach (ICD-10-PCS; 2016-12-20)
PROC: 0DNW0ZZ Release Peritoneum, Open Approach (ICD-10-PCS; 2016-12-20)
PROC: 0DBS0ZZ (ICD-10-PCS; 2016-12-20)
PROC: 0WJG4ZZ Inspection of Peritoneal Cavity, Percutaneous Endoscopic Approach (ICD-10-PCS; 2016-12-20)
PROC: 0UT20ZZ Resection of Bilateral Ovaries, Open Approach (ICD-10-PCS; principal; 2016-12-20 07:41)
DX: C56.1 Malignant neoplasm of right ovary (principal); C78.6 Secondary malignant neoplasm of retroperitoneum and peritoneum; C56.2 Malignant neoplasm of left ovary; R56.9 Unspecified convulsions; K66.0 Peritoneal adhesions (postprocedural) (postinfection); K21.9 Gastro-esophageal reflux disease without esophagitis; M79.89 Other specified soft tissue disorders; F41.9 Anxiety disorder, unspecified; F17.210 Nicotine dependence, cigarettes, uncomplicated; G62.9 Polyneuropathy, unspecified; Z92.21 Personal history of antineoplastic chemotherapy; Z53.31 Laparoscopic surgical procedure converted to open procedure
CPT/HCPCS: 36430; 80048; 85025; 85027; 86850; 86900; 86901; 86920; 88305; 88307; 88309; 93971; 94150; J1100; J1644; J1956; J2250; J2270; J2405; J2710; J3010; J3480; J7120; P9016

== ENCOUNTER 2017-01-07 09:38 | Inpatient (IN) | payer MEDICAID ==
[~2017-01-07] VITALS: Ht 165.1 cm; Wt 98.0 kg
[2017-01-07] VITALS (11 sets, daily range): BP systolic 101–127; BP diastolic 54–69; PULSE 74–89; RESP 15–20; TEMP 97.5–98.7; O2SAT 93–100
[~2017-01-07 09:38] MED LIST changes: +DEPA500T3 PO; +DILA2TAB2 PO; +LISI10TA3 PO; -LORA-474 PO; +NAPR220T95 PO; -PHEN100 PO; +PRIL20CA9 PO; +ZOFR4TAB PO
--- NOTE | 2017-01-07 09:53 | PD ---
HPI Chief Complaint: Cardiac Complaint Time Seen by Provider: 09:49 Travel History International Travel<30 days: No Contact w/Intl Traveler<30days: No Traveled to known affect area: No History of Present Illness HPI 47-year-old female with history of ovarian cancer currently under treatment of Dr. Luz, had ovarian cancer surgery done last week, and started having left sided chest pains which she measures it a 9 out of 10 on Tuesday. She has been having pain with deep breaths and coughing up blood according to her relative. She thinks she may have had subjective fevers yesterday. She denies any vomiting, diarrhea, or other issues. Modifying Factors: Worse with deep breaths Associated Signs & Symptoms: Left-sided dyspnea Risk Factors: Ovarian cancer, recent surgery PFSH Past Medical History Arthritis: Yes (RIGHT HAND) Asthma: Yes Autoimmune Disease: No Blood Disorders: No Bipolar Disorder: Yes Anxiety: Yes Depression: Yes (MANIC DEPRESSION) Heart Rhythm Problems: Yes Cancer: Yes (OVARIAN CA) Cardiovascular Problems: Yes (HEART VALVE INFECTION A BABY) High Cholesterol: No Chemotherapy: No Chest Pain: No Congestive Heart Failure: No COPD: No Cerebrovascular Accident: Yes (TIA WHILE IN A [id number] (WITH RIGHT SIDE WEAKNESS)) Diabetes: No Diminished Hearing: No Endocrine: No GERD: No Genitourinary: No Headaches: Yes ("SPINAL HEADACHE") Hepatitis: No Hiatal Hernia: No Immune Disorder: No Kidney Stones: Yes Musculoskeletal: Yes (RIGHT KNEE PAIN) Neurologic: Yes (SEIZURES, NEUROPATHY TO RLE) Psychiatric: No Reproductive: No Respiratory: No Migraines: No Pneumonia: Yes Radiation Therapy: No Renal Failure: No Seizures: Yes (BEGAN 2000) Sickle Cell Disease: No Sleep Apnea: No Thyroid Disease: No Ulcer: No : 5 Para: 2 Miscarriage: 2 Ectopic : Yes Dilation and Curettage (D&C): Yes Past Surgical History Abdominal Surgery: Yes (STUART) AICD: No Arteriovenous Shunt: No Body Medical Devices: RIGHT CHEST INFUSAPORT, PLATE TO FOREHEAD Cardiac Surgery: No Section: Yes (X 1) Cholecystectomy: Yes Ear Surgery: Yes (RIGHT EAR SURGERY) Endocrine Surgery: No Eye Surgery: Yes (LEFT EYE SURGERY) Genitourinary Surgery: Yes (LASER TO LEFT KIDNEY TO REMOVE KIDNEY STONE) Gynecologic Surgery: Yes (IUD REMOVED) Insulin Pump: No Joint Replacement: No Oral Surgery: Yes (T&A) Pacemaker: No Thoracic Surgery: No Tonsillectomy: Yes (T & A) Other Surgery: Yes (IUD IN PLACE , SINUS SURGERY) Family History Family Hypercholesterolemia: Yes Social History Alcohol Use: Yes (ONCE PER MONTH) Tobacco Use: Yes (1 PPD) Substance Use: No Allergies-Medications (Allergen,Severity, Reaction): Coded Allergies: Aspirin (Verified Allergy, Severe, Swelling, 01/07/17) Ceclor (Verified Allergy, Severe, Rash, 01/07/17) Oxycontin (Verified Allergy, Severe, Arrhythmias, 01/07/17) Penicillin (Verified Allergy, Severe, Swelling, 01/07/17) Tylenol (Verified Allergy, Severe, Nausea/Vomiting, 01/07/17) Betadine (Verified Allergy, Intermediate, Rash, 01/07/17) Latex (Verified Allergy, Intermediate, Rash, 01/07/17) Iodine (Verified Allergy, Unknown, 01/07/17) Ibuprofen (Verified Adverse Reaction, Severe, Nausea/Vomiting, 01/07/17) Uncoded Allergies: "CILLINS" (Allergy, Severe, Swelling, 12/24/13) Reported Meds & Prescriptions Reported Meds & Active Scripts Active Reported Ciprofloxacin (Ciprofloxacin HCl) 250 Mg Tab 250 Mg PO DAILY 7 Days Hydromorphone (Hydromorphone HCl) 4 Mg Tab 4 Mg PO Q4H PRN Morphine IR (Morphine Sulfate) 15 Mg Tab 15 Mg PO Q6HR PRN Orphenadrine ER 12 HR (Orphenadrine Citrate) 100 Mg Tab 100 Mg PO Q12HR Aleve (Naproxen Sodium) 220 Mg Tab 440 Mg PO BID PRN Zofran (Ondansetron HCl) 4 Mg Tab 4 Mg PO Q6HR PRN Lisinopril 10 Mg Tab 10 Mg PO DAILY Prilosec (Omeprazole) 20 Mg Cap 20 Mg PO HS Depakote ER (Divalproex Sodium) 500 Mg Zee 1,000 Mg PO HS Dilantin (Phenytoin Extended) 100 Mg Cap 300 Mg PO HS Review of Systems Except as stated in HPI: all other systems reviewed are Neg Physical Exam Narrative GENERAL: Middle age white female patient currently in moderate distress secondary to pain. Awake and oriented 3. SKIN: Warm and dry. HEAD: Atraumatic. Normocephalic. EYES: Pupils equal and round. No scleral icterus. No injection or drainage. ENT: No nasal bleeding or discharge. Mucous membranes pink and moist. NECK: Trachea midline. No JVD. CARDIOVASCULAR: Regular rate and rhythm. No murmur appreciated. RESPIRATORY: No accessory muscle use. Clear to auscultation. Breath sounds equal bilaterally. CHEST: Tender to palpation of the left lower chest wall without deformity or crepitance. No retractions or use of accessory muscles. GASTROINTESTINAL: Abdomen soft, non-tender, nondistended. Hepatic and splenic margins not palpable. MUSCULOSKELETAL: No obvious deformities. No clubbing. No cyanosis. No edema. NEUROLOGICAL: Awake and alert. No obvious cranial nerve deficits. Motor grossly within normal limits. Normal speech. PSYCHIATRIC: Appropriate mood and affect; insight and judgment normal. Data Data Last Documented VS Vital Signs Date Time Temp Pulse Resp B/P Pulse Ox O2 Delivery O2 Flow Rate FiO2 01/07/17 13:56 88 16 103/66 93 Room Air 01/07/17 09:52 2 01/07/17 09:41 97.5 Orders Complete Blood Count With Diff (01/07/17 09:46) Comprehensive Metabolic Panel (01/07/17 09:46) Act Partial Throm Time (Ptt) (01/07/17 09:46) Prothrombin Time / Inr (Pt) (01/07/17 09:46) Iv Access Insert/Monitor (01/07/17 09:46) Electrocardiogram (01/07/17 09:46) Ecg Monitoring (01/07/17 09:46) Oximetry (01/07/17 09:46) Oxygen Administration (01/07/17 09:46) Chest, Single Ap (01/07/17 09:46) Sodium Chloride 0.9% Flush (Ns Flush) (01/07/17 10:00) Lipase (01/07/17 09:49) Hydromorphone Pf Inj (Dilaudid Pf Inj) (01/07/17 10:00) Ondansetron Inj (Zofran Inj) (01/07/17 10:00) Sodium Chlorid 0.9% 500 Ml Inj (Ns 500 M (01/07/17 10:00) Ventilation & Perfusion Scan (01/07/17 12:58) Type And Screen (01/07/17 15:11) Red Blood Cells (Rbc) (01/07/17 15:11) Blood Product Administration .UPON TRANSFUSION (01/07/17 15:11) Sodium Chlor 0.9% 250 Ml Inj (Ns 250 Ml (01/07/17 15:15) Admit Order (Ed Use Only) (01/07/17 15:54) Blood Culture (01/07/17 15:54) Lactic Acid Sepsis Protocol (01/07/17 15:54) Levofloxacin 750 Mg Premix Inj (Levaquin (01/07/17 15:54) Labs Laboratory Tests Test 01/07/17 10:58 White Blood Count 13.7 TH/MM3 Red Blood Count 2.33 MIL/MM3 Hemoglobin 7.9 GM/DL Hematocrit 23.2 % Mean Corpuscular Volume 99.5 FL Mean Corpuscular Hemoglobin 34.0 PG Mean Corpuscular Hemoglobin 34.2 % Concent Red Cell Distribution Width 16.4 % Platelet Count 326 TH/MM3 Mean Platelet Volume 9.0 FL Neutrophils (%) (Auto) 72.8 % Lymphocytes (%) (Auto) 12.8 % Monocytes (%) (Auto) 9.0 % Eosinophils (%) (Auto) 4.8 % Basophils (%) (Auto) 0.6 % Neutrophils # (Auto) 10.0 TH/MM3 Lymphocytes # (Auto) 1.8 TH/MM3 Monocytes # (Auto) 1.2 TH/MM3 Eosinophils # (Auto) 0.7 TH/MM3 Basophils # (Auto) 0.1 TH/MM3 CBC Comment DIFF FINAL Differential Comment Prothrombin Time 12.1 SEC Prothromb Time International 1.1 RATIO Ratio Activated Partial 30.9 SEC Thromboplast Time Sodium Level 131 MEQ/L Potassium Level 3.8 MEQ/L Chloride Level 95 MEQ/L Carbon Dioxide Level 26.7 MEQ/L Anion Gap 9 MEQ/L Blood Urea Nitrogen 10 MG/DL Creatinine 0.51 MG/DL Estimat Glomerular Filtration 129 ML/MIN Rate Random Glucose 128 MG/DL Calcium Level 8.8 MG/DL Total Bilirubin 0.6 MG/DL Aspartate Amino Transf 74 U/L (AST/SGOT) Alanine Aminotransferase 54 U/L (ALT/SGPT) Alkaline Phosphatase 400 U/L Total Protein 7.2 GM/DL Albumin 1.8 GM/DL Lipase 82 U/L MDM Medical Decision Making Medical Screen Exam Complete: Yes Emergency Medical Condition: Yes Medical Record Reviewed: Yes Interpretation(s) EKG shows NSR, no ST elevation or depression, and no arrhythmias. No significant T-wave inversions. Laboratory Tests Test 01/07/17 10:58 White Blood Count 13.7 TH/MM3 (4.0-11.0) Red Blood Count 2.33 MIL/MM3 (4.00-5.30) Hemoglobin 7.9 GM/DL (11.6-15.3) Hematocrit 23.2 % (35.0-46.0) Neutrophils (%) (Auto) 72.8 % (16.0-70.0) Monocytes (%) (Auto) 9.0 % (0.0-8.0) Eosinophils (%) (Auto) 4.8 % (0.0-4.0) Neutrophils # (Auto) 10.0 TH/MM3 (1.8-7.7) Monocytes # (Auto) 1.2 TH/MM3 (0-0.9) Eosinophils # (Auto) 0.7 TH/MM3 (0-0.4) Prothrombin Time 12.1 SEC (9.8-11.6) Activated Partial 30.9 SEC Thromboplast Time (24.3-30.1) Sodium Level 131 MEQ/L (136-145) Chloride Level 95 MEQ/L (98-107) Random Glucose 128 MG/DL (74-106) Aspartate Amino Transf 74 U/L (15-37) (AST/SGOT) Alanine Aminotransferase 54 U/L (10-53) (ALT/SGPT) Alkaline Phosphatase 400 U/L (45-117) Albumin 1.8 GM/DL (3.4-5.0) Last 24 hours Impressions Lung Scan- Nuclear Medicine 01/07/17 1258 Signed Impressions: Service Date/Time: Saturday, January 07, 2017 14:26 - CONCLUSION: 1. Examination is negative for pulmonary embolus. Xiang Johnson MD Chest X-Ray 01/07/17 8212 Signed Impressions: Service Date/Time: Saturday, January 07, 2017 10:35 - CONCLUSION: Bibasilar infiltrates and effusions. Luis Campoverde MD Differential Diagnosis Left-sided chest pains with deep breaths, coughing up bloodpneumonia versus PE versus pleurisy versus metastases Narrative Course Patient was initially ordered a CTA but she is allergic to iodine and a V/Q scan was instead ordered. Chest x-ray shows basilar infiltrates and effusions. VQ scan did not show PE. However, her lab work did show significant anemia which is suspect could be causing some of the symptoms. Patient has leukocytosis as well and it is uncertain whether she may have some underlying pneumonia. IV antibiotics were initiated after cultures are drawn. Patient was ordered for 2 units of PRBCs. Case was then discussed with Dr. Gandhi for admission. Diagnosis Primary Impression: Symptomatic anemia Additional Impression: Pneumonia Admitting Information Admitting Physician Requests: Admit Karin Pinon MD Jan 07, 2017 09:53
[2017-01-07] MEDS ORDERED: ONDANSETRON HCL 4 MG/2 ML VIAL IV PUSH ONE (10:00)
[2017-01-07] MEDS ORDERED: SODIUM CHLORID 0.9% 500 ML INJ 500 ML IV ONE (10:00)
[2017-01-07] MEDS ORDERED: SODIUM CHLORIDE 0.9% FLUSH 10 ML FLUSH IVF PRN (10:00)
[2017-01-07] MEDS ORDERED: HYDROmorphone HCL PF 1 MG/ML VIAL IV PUSH ONE (10:00)
[2017-01-07] MEDS ORDERED: HYDR4TAB PO (10:03)
[2017-01-07] MEDS ORDERED: ORPH100T PO (10:03)
[2017-01-07] MEDS ORDERED: CIPR250T2 PO (10:03)
[2017-01-07] MEDS ORDERED: MSIR15 PO (10:03)
[2017-01-07 11:10] LABS: BASOPHIL # 0.1 TH/MM3 (0-0.2); BASOPHIL % 0.6 % (0.0-2.0); EOSINOPHIL # 0.7 TH/MM3 (0-0.4); EOSINOPHIL % 4.8 % (0.0-4.0); HEMATOCRIT 23.2 % (35.0-46.0); HEMO FLAGS DIFF FINAL; LYMPH % 12.8 % (9.0-44.0); LYMPHOCYTE # 1.8 TH/MM3 (1.0-4.8); MEAN CELL VOLUME 99.5 FL (80.0-100.0); MEAN CORPUSCULAR HGB CONC 34.2 % (32.0-36.0); NEUT % 72.8 % (16.0-70.0); PLATELET COUNT 326 TH/MM3 (150-450); RED BLOOD COUNT 2.33 MIL/MM3 (4.00-5.30); RED CELL DISTRIBUTION WIDTH 16.4 % (11.6-17.2); WHITE BLOOD COUNT 13.7 TH/MM3 (4.0-11.0)
[2017-01-07 11:28] LABS: APTT (PATIENT) 30.9 SEC (24.3-30.1); INTERNATIONAL NORMALIZED RATIO 1.1 RATIO; PROTHROMBIN TIME - PATIENT 12.1 SEC (9.8-11.6)
--- NOTE | 2017-01-07 11:28 | RADRPT ---
EXAM DATE/TIME: 01/07/2017 10:35 [facility] COMPARISON: CHEST SINGLE AP, December 24, 2013, 9:08. INDICATIONS : Short of breath MEDICAL HISTORY : ovarian ca, chemo, seizure SURGICAL HISTORY : infusaport ENCOUNTER: Initial ACUITY: 1 day PAIN SCORE: 3/10 LOCATION: Bilateral chest FINDINGS: Bilateral basilar infiltrates and effusions are present. Cardiac contours are partially obscured. Med iastinal contours are grossly satisfactory. Right chest port is in good position. CONCLUSION: Bibasilar infiltrates and effusions. Luis Campoverde MD on January 07, 2017 at 11:25 Board Certified Radiologist. This report was verified electronically.
[2017-01-07 11:30] LABS: ANION GAP 9 MEQ/L (5-15); AST (GOT) 74 U/L (15-37); BICARBONATE 26.7 MEQ/L (21.0-32.0); BLOOD UREA NITROGEN 10 MG/DL (7-18); CHLORIDE 95 MEQ/L (98-107); GLOMERULAR FILTRATION RATE 129 ML/MIN (>89); POTASSIUM 3.8 MEQ/L (3.5-5.1); SODIUM (NA) 131 MEQ/L (136-145)
[2017-01-07 11:34] LABS: ALKALINE PHOSPHATASE 400 U/L (45-117); ALT (GPT) 54 U/L (10-53); TOTAL BILIRUBIN ADULT 0.6 MG/DL (0.2-1.0)
--- NOTE | 2017-01-07 15:07 | RADRPT ---
EXAM DATE/TIME: 01/07/2017 14:26 [facility] COMPARISON: CHEST SINGLE AP, January 07, 2017, 10:35. INDICATIONS : Shortness of breath with left sided chest pain for one day. DOSE: 8.7 mCi Tc99m MAA IV 0.46 mCi Tc99m DTPA aerosol MEDICAL HISTORY : Ovarian cancer. Asthma. SURGICAL HISTORY : Cholecystectomy. section. Tonsillectomy. ENCOUNTER: Initial ACUITY: 1 day PAIN SCALE: 9/10 LOCATION: Left chest TECHNIQUE: Following five minutes of tidal breathing of DTPA aerosol, planar images of the lungs were performed in eight projections. The patient was then injected with MAA, and eight-view perfusion scan was perf ormed. FINDINGS: There are small, patchy subsegmental ventilatory defects with some central clumping of tracer. No seg mental defects are seen. The perfusion lung scan demonstrates a homogenous pattern of uptake in both lungs. No segmental or subsegmental defects are seen. CONCLUSION: 1. Examination is negative for pulmonary embolus. Xiang Johnson MD on January 07, 2017 at 15:03 Board Certified Radiologist. This report was verified electronically.
[2017-01-07] MEDS ORDERED: SODIUM CHLOR 0.9% 250 ML INJ 250 ML IV ONE (15:15)
[2017-01-07] MEDS ORDERED: LEVOFLOXACIN 750 MG PREMIX INJ 150 ML IV STA (15:54)
[2017-01-07] MEDS: SODIUM CHLOR 0.9% 1000 ML INJ 1,000 ML IV SCH (15:55)
[2017-01-07] MEDS ORDERED: ACETAMINOPHEN/HYDROcodone 325 MG/7.5 MG TAB PO PRN (16:00)
[2017-01-07] MEDS ORDERED: TEMAZEPAM 15 MG CAP PO PRN (16:00)
[2017-01-07] MEDS ORDERED: SODIUM CHLORIDE 0.9% FLUSH 10 ML FLUSH IV FLUSH PRN (16:00)
[2017-01-07] MEDS ORDERED: MAGNESIUM HYDROXIDE SUSP 30 ML CUP PO PRN (16:00)
[2017-01-07] MEDS ORDERED: NALOXONE HCL 0.4 MG/ML AMP IV PRN (16:00)
[2017-01-07] MEDS ORDERED: HYDROmorphone HCL 4 MG TAB PO PRN (16:30)
[2017-01-07] MEDS: ONDANSETRON HCL 4 MG/2 ML VIAL IVP PRN (16:37)
[2017-01-07] MEDS: MORPHINE SULFATE 4 MG/ML INJ IV PUSH PRN ×2 (16:37→20:59)
--- NOTE | 2017-01-07 16:52 | HHI.HP ---
[facility]Staff Ad[facility] Diagnosis symptomatic anemia/chest pain/possible pneumonia Diagnoses: Chief Complaint: Left sided chest pain, cough with blood. Travel History International Travel<30 Days: No Contact w/Intl Traveler <30 Da: No Traveled to Known Affected Are: No Sepsis Criteria SIRS Criteria (2 or more): WBC > 15571, < 4000 or > 10% bands History of Present Illness Ms. Segura is a 47 year old female with a recent history of Ovarian cancer s/ p surgery last week who presents to the ED due to shortness of breath, cough and hemoptysis. She initially had shortness of breath and non-bloody cough. However, in the last few days, she has started having hemoptysis. She reports low grade fever at home. She also noted hematuria as well as inability to urinate since 6:30AM. Denies any changes in bowel habits. Patient underwent V/Q scan in the ED which showed no pulmonary embolism. Patient is allergic to contrast and thus CT PE was not obtained. CXR showed bibasilar infiltrates. Later, we obtained CT chest without contrast which showed infiltrates as well bilateral pleural effusion. Review of Systems ROS Limitations: Other (Negative except as noted in the HPI. ) Past Family Social History Past Medical History Ovarian cancer TIA childhood heart valve infection Past Surgical History s/p ovarian cancer surgery Right ear, left eye surgery Cholecystectomy . Reported Medications Ciprofloxacin (Ciprofloxacin HCl) 250 Mg Tab 250 Mg PO DAILY 7 Days Hydromorphone (Hydromorphone HCl) 4 Mg Tab 4 Mg PO Q4H PRN Morphine IR (Morphine Sulfate) 15 Mg Tab 15 Mg PO Q6HR PRN Orphenadrine ER 12 HR (Orphenadrine Citrate) 100 Mg Tab 100 Mg PO Q12HR Aleve (Naproxen Sodium) 220 Mg Tab 440 Mg PO BID PRN Zofran (Ondansetron HCl) 4 Mg Tab 4 Mg PO Q6HR PRN Lisinopril 10 Mg Tab 10 Mg PO DAILY Prilosec (Omeprazole) 20 Mg Cap 20 Mg PO HS Depakote ER (Divalproex Sodium) 500 Mg Zee 1,000 Mg PO HS Dilantin (Phenytoin Extended) 100 Mg Cap 300 Mg PO HS Allergies: Coded Allergies: Aspirin (Verified Allergy, Severe, Swelling, 01/07/17) Ceclor (Verified Allergy, Severe, Rash, 01/07/17) Oxycontin (Verified Allergy, Severe, Arrhythmias, 01/07/17) Penicillin (Verified Allergy, Severe, Swelling, 01/07/17) Tylenol (Verified Allergy, Severe, Nausea/Vomiting, 01/07/17) Betadine (Verified Allergy, Intermediate, Rash, 01/07/17) Latex (Verified Allergy, Intermediate, Rash, 01/07/17) Iodine (Verified Allergy, Unknown, 01/07/17) Ibuprofen (Verified Adverse Reaction, Severe, Nausea/Vomiting, 01/07/17) Uncoded Allergies: "CILLINS" (Allergy, Severe, Swelling, 12/24/13) Family History Father - DC Mother - AAA repair. Social History Smokes 1ppd and drinks occasionally. No illicit drugs. Physical Exam Vital Signs Vital Signs Date Time Temp Pulse Resp B/P Pulse Ox O2 Delivery O2 Flow Rate FiO2 01/07/17 13:56 88 16 103/66 93 Room Air 01/07/17 11:55 89 16 103/54 97 Room Air 01/07/17 09:52 93 Nasal Cannula 2 01/07/17 09:41 97.5 74 15 127/69 94 Physical Exam GENERAL: This is a well-nourished, well-developed patient, in no apparent distress. SKIN: No rashes, ecchymoses or lesions. Warm and dry. HEAD: Atraumatic. Normocephalic. No temporal or scalp tenderness. EYES: Pupils equal round and reactive. No injection or drainage. ENT: Nose without bleeding, purulent drainage or septal hematoma. Airway patent. NECK: Trachea midline. No lymphadenopathy. Supple, nontender, no meningeal signs. CARDIOVASCULAR: Regular rate and rhythm without murmurs, gallops, or rubs. No JVD. RESPIRATORY: Moderate air entry. Bibasilar crackles. Bloody sputum when coughs. GASTROINTESTINAL: Abdomen soft, non-tender, nondistended. No guarding. MUSCULOSKELETAL: Extremities without clubbing, cyanosis, or edema. NEUROLOGICAL: Awake and alert. Cranial nerves II through XII intact. No focal neurological deficits. Normal speech. Laboratory Laboratory Tests Test 01/07/17 10:58 White Blood Count 13.7 Red Blood Count 2.33 Hemoglobin 7.9 Hematocrit 23.2 Mean Corpuscular Volume 99.5 Mean Corpuscular Hemoglobin 34.0 Mean Corpuscular Hemoglobin 34.2 Concent Red Cell Distribution Width 16.4 Platelet Count 326 Mean Platelet Volume 9.0 Neutrophils (%) (Auto) 72.8 Lymphocytes (%) (Auto) 12.8 Monocytes (%) (Auto) 9.0 Eosinophils (%) (Auto) 4.8 Basophils (%) (Auto) 0.6 Neutrophils # (Auto) 10.0 Lymphocytes # (Auto) 1.8 Monocytes # (Auto) 1.2 Eosinophils # (Auto) 0.7 Basophils # (Auto) 0.1 CBC Comment DIFF FINAL Differential Comment Prothrombin Time 12.1 Prothromb Time International 1.1 Ratio Activated Partial 30.9 Thromboplast Time Sodium Level 131 Potassium Level 3.8 Chloride Level 95 Carbon Dioxide Level 26.7 Anion Gap 9 Blood Urea Nitrogen 10 Creatinine 0.51 Estimat Glomerular Filtration 129 Rate Random Glucose 128 Calcium Level 8.8 Total Bilirubin 0.6 Aspartate Amino Transf 74 (AST/SGOT) Alanine Aminotransferase 54 (ALT/SGPT) Alkaline Phosphatase 400 Total Protein 7.2 Albumin 1.8 Lipase 82 Result Diagram: 01/07/17 1058 01/07/17 1058 Imaging Last Impressions Lung Scan-V Nuclear Medicine 01/07/17 1258 Signed Impressions: Service Date/Time: Saturday, January 07, 2017 14:26 - CONCLUSION: 1. Examination is negative for pulmonary embolus. Xiang Johnson MD Chest X-Ray 01/07/17 0946 Signed Impressions: Service Date/Time: Saturday, January 07, 2017 10:35 - CONCLUSION: Bibasilar infiltrates and effusions. Luis Campoverde MD Chest CT 01/07/17 0000 Signed Impressions: Service Date/Time: Saturday, January 07, 2017 17:09 - CONCLUSION: 1. Small bilateral pleural effusions with concomitant atelectasis/airspace disease. 2. Old granulomatous disease with subcentimeter granuloma in the left lingula/ lung base and left hilar lymph nodes. 3. Patient is status post cholecystectomy. Home Kohler MD Assessment and Plan Problem List: (1) Pneumonia ICD Code: J18.9 Status: Acute (2) Bilateral pleural effusion ICD Code: J90 Status: Acute (3) Hemoptysis ICD Code: R04.2 Status: Acute (4) Ovarian cancer ICD Code: C56.9 Status: Acute (5) Seizure disorder ICD Code: G40.909 Status: Chronic Assessment and Plan Ms. Segura is a 47 year old female with a recent history of Ovarian cancer s/ p surgery who presents to the ED due to shortness of breach, cough with bloody sputum production and subjective low grade fever. Radiological studies indicate no PE but shows bilateral pleural effusion as well as bilateral infiltrates. - Hemoptysis - Bilateral pleural effusion - Bilateral pneumonia - CXR, CT Chest reviewed by me on 01/07/2017 - shows bilateral infiltrates and bilateral pleural effusion. - Will start patient on Ceftriaxone 2g Q24hrs IV and Levaquin 750mg Qday PO. - Will consult Dr. Leone (Pulmonary). Discussed with Dr. Leone - he started patient on Solu-medrol IV. - Consider diagnostic thoracentesis to rule out malignant pleural effusion. - Urinary retention - Hematuria - Insert Herrera catheter. Obtain UA/Urine culture. - Hypertension - Continue Lisinopril 10mg Qday. - Seizure disorder - Continue Depakote 1000mg QHS and Dilantin 300mg QHS. - GERD - continue PPI. Full code. SCDs for now. No Pharmacological DVT prophylaxis due to hemoptysis. Physician Certification 2 Midnight Certification Type: Admission for Inpatient Services Order for Inpatient Services The services are ordered in accordance with Medicare regulations or non- Medicare payer requirements, as applicable. In the case of services not specified as inpatient-only, they are appropriately provided as inpatient services in accordance with the 2-midnight benchmark. Estimated LOS (days): 3 days is the estimated time the patient will need to remain in the hospital, assuming treatment plan goals are met and no additional complications. Post-Hospital Plan: Melissa Peoples DO Jan 07, 2017 16:52
--- NOTE | 2017-01-07 17:31 | RADRPT ---
EXAM DATE/TIME: 01/07/2017 17:09 [facility] COMPARISON: CHEST SINGLE AP, January 07, 2017, 10:35. INDICATIONS : Shortness of breath with hemoptysis. RADIATION DOSE: 5.45 CTDIvol (mGy) MEDICAL HISTORY : Hypertension. Asthma SURGICAL HISTORY : Hysterectomy. ENCOUNTER: Initial ACUITY: 1 day PAIN SCALE: 3/10 LOCATION: cranial TECHNIQUE: Volumetric scanning of the chest was performed. Using automated exposure control and adjustment of t he mA and/or kV according to patient size, radiation dose was kept as low as reasonably achievable to obtain optimal diagnostic quality images. FINDINGS: LUNGS: As seen on plain film, there are small bilateral pleural effusions with concomitant atelectasis/airsp gabriela disease. Subcentimeter granuloma in the left lower lobe. PLEURAE: Small bilateral pleural effusions. MEDIASTINUM: The heart and great vessels demonstrate no acute abnormality. There is no mediastinal or hilar lymph adenopathy. Granulomatous type calcification in the left hilar lymph node AXILLAE: Within normal limits. No lymphadenopathy. MUSCULOSKELETAL: Within normal limits for patient age. Patient has a right subclavian Dueyii-f-[id number] catheter. MISCELLANEOUS: The visualized upper abdominal organs demonstrate no acute abnormality. Patient is status post cholec ystectomy. CONCLUSION: 1. Small bilateral pleural effusions with concomitant atelectasis/airspace disease. 2. Old granulomatous disease with subcentimeter granuloma in the left lingula/lung base and left alayna r lymph nodes. 3. Patient is status post cholecystectomy. Home Kohler MD on January 07, 2017 at 17:22 Board Certified Radiologist. This report was verified electronically.
[2017-01-07] MEDS: RESP: ALBUTEROL 2.5 MG/IPRATROPIUM 0.5 MG NEB (SCH) NEB (19:52)
[2017-01-07] MEDS: cefTRIAXone INJ 2,000 MG in SODIUM CHLORIDE 0.9% INJ 100 ML IV SCH (20:08)
[2017-01-07] MEDS: SODIUM CHLORIDE 0.9% FLUSH 10 ML FLUSH IV FLUSH SCH (21:38)
[2017-01-07] MEDS: methylPREDNISolone SOD SUCC 40 MG/1 ML VIAL IV PUSH SCH (23:16)
[2017-01-08] VITALS (8 sets, daily range): BP systolic 105–120; BP diastolic 58–71; PULSE 79–86; RESP 17–19; TEMP 95.8–100; O2SAT 95–98
[2017-01-08] MEDS: SODIUM CHLOR 0.9% 1000 ML INJ 1,000 ML IV SCH ×3 (01:55→21:55)
[2017-01-08 07:32] LABS: BICARBONATE 24.8 MEQ/L (21.0-32.0); POTASSIUM 4.8 MEQ/L (3.5-5.1)
[2017-01-08 07:35] LABS: AUTOMATED NEUTROPHIL # 12.2 TH/MM3 (1.8-7.7); BASOPHIL % 0.3 % (0.0-2.0); EOSINOPHIL # 0.1 TH/MM3 (0-0.4); EOSINOPHIL % 0.6 % (0.0-4.0); HEMATOCRIT 31.9 % (35.0-46.0); LYMPH % 8.6 % (9.0-44.0); LYMPHOCYTE # 1.2 TH/MM3 (1.0-4.8); MEAN CELL VOLUME 95.3 FL (80.0-100.0); MEAN CORPUSCULAR HGB CONC 34.7 % (32.0-36.0); MONO % 4.6 % (0.0-8.0); NEUT % 85.9 % (16.0-70.0); PLATELET COUNT 291 TH/MM3 (150-450); RED BLOOD COUNT 3.34 MIL/MM3 (4.00-5.30); WHITE BLOOD COUNT 14.2 TH/MM3 (4.0-11.0)
[2017-01-08 07:36] LABS: HEMO FLAGS AUTO DIFF
[2017-01-08] MEDS: RESP: ALBUTEROL 2.5 MG/IPRATROPIUM 0.5 MG NEB (SCH) NEB ×4 (08:42→20:13)
[2017-01-08] MEDS: SODIUM CHLORIDE 0.9% FLUSH 10 ML FLUSH IV FLUSH SCH ×2 (09:00→20:36)
[2017-01-08] MEDS: LISINOPRIL 10 MG TAB PO SCH (09:00)
[2017-01-08] MEDS: methylPREDNISolone SOD SUCC 40 MG/1 ML VIAL IV PUSH SCH ×2 (09:00→20:37)
[2017-01-08 09:08] LABS: BANDS 2 % (0-6); BASOPHILS 1 % (0-2); EOSINOPHILS 1 % (0-4); METAMYELOCYTES 2 % (0-1); MYELOCYTES 1 % (0-0); NEUTROPHIL # MANUAL DIFF 11.9 TH/MM3 (1.8-7.7); PLATELET ESTIMATE SMEAR NORMAL (NORMAL); PLATELET MORPHOLOGY NORMAL (NORMAL); POLYS (SEG NEUTROPHILS) 79 % (16-70); SCAN/DIFF FINAL DIFF MANUAL; WBC DIFF SAMPLE 100
--- NOTE | 2017-01-08 09:20 | RADRPT ---
EXAM DATE/TIME: 01/07/2017 20:50 [facility] COMPARISON: CT THORAX W/O CONTRAST, January 07, 2017, 17:09. INDICATIONS : Left pleural effusion. MEDICAL HISTORY : Gastroesophageal reflux disease. Hypertension. Seizures. Cerebrovascular accident. Headache. Irregula r heartbeat. Asthma. Pneumonia. Ectopic . Renal calculi. Arthritis. Bipolar disorder. Ovaria n cancer. Chemotherapy. SURGICAL HISTORY : Tonsillectomy. Cholecystectomy. Hysterectomy. section. Dilation and curettage. Sinus surgery . Left eye surgery. Right ear surgery. ENCOUNTER: Initial ACUITY: 1 day PAIN SCORE: 0/10 LOCATION: Left chest MEASUREMENTS: SKIN TO PARIETAL PLEURA: Inadequate fluid SKIN TO MAX SAFE DEPTH: Inadequate fluid ESTIMATED FLUID VOLUME: FLUID COMPOSITION: Inadequate fluid FINDINGS: No marking was performed. Imaging of the left posterior chest demonstrates only trace fluid, inadequa te for drainage. CONCLUSION: Only trace amount of fluid seen in adequate for drainage. No marking was performed.. Roro Story MD on January 08, 2017 at 9:16 Board Certified Radiologist. This report was verified electronically.
--- NOTE | 2017-01-08 09:32 | RADRPT ---
EXAM DATE/TIME: 01/08/2017 08:53 [facility] COMPARISON: CT THORAX W/O CONTRAST, January 07, 2017, 17:09. INDICATIONS : Right pleural effusion. MEDICAL HISTORY : Hypertension. Gastroesophageal reflux disease. Seizures. Cerebrovascular accident. Headache. Irregula r heartbeat. Asthma. Pneumonia. Ectopic . Renal calculi. Arthritis. Bipolar disorder. Ovaria n cancer. Chemotherapy. SURGICAL HISTORY : Tonsillectomy. Cholecystectomy. Hysterectomy. section. Dilation and curettage. Sinus surgery . Left eye surgery. Right ear surgery. ENCOUNTER: Initial ACUITY: 1 day PAIN SCORE: 0/10 LOCATION: Right chest MEASUREMENTS: SKIN TO PARIETAL PLEURA: Inadequate fluid SKIN TO MAX SAFE DEPTH: Inadequate fluid ESTIMATED FLUID VOLUME: 196 cc FLUID COMPOSITION: simple FINDINGS: No marking was performed. Evaluation of the right posterior chest was performed. There is only a smal l amount of fluid identifiable, not amenable to drainage. CONCLUSION: Small amount of right-sided pleural fluid, inadequate for drainage.. Roro Story MD on January 08, 2017 at 9:30 Board Certified Radiologist. This report was verified electronically.
--- NOTE | 2017-01-08 09:57 | HHI.PR ---
Subjective Remarks Follow up for pneumonia, hemoptysis. Patient is doing better today. Denies any chest pain, shortness of breath, fever or chills. Her hemoptysis is improving. Objective Vitals Vital Signs Date Time Temp Pulse Resp B/P Pulse Ox O2 Delivery O2 Flow Rate FiO2 01/08/17 08:44 97 Nasal Cannula 2.00 01/08/17 08:37 96.6 84 19 117/71 95 01/08/17 05:58 97.7 81 17 116/65 98 01/08/17 01:40 98.9 86 18 110/58 98 01/08/17 01:06 100.0 85 17 120/67 97 01/07/17 23:30 98.2 84 18 109/62 96 Nasal Cannula 2 01/07/17 23:00 98.2 84 18 106/59 97 Nasal Cannula 2 01/07/17 22:53 98.1 88 18 102/58 100 Nasal Cannula 2 01/07/17 21:53 98.7 89 20 102/57 97 Nasal Cannula 2 01/07/17 21:36 98.0 81 18 101/57 96 Nasal Cannula 2 01/07/17 20:45 98.0 87 16 104/59 98 Nasal Cannula 2 01/07/17 19:52 96 Nasal Cannula 2.00 01/07/17 19:27 87 18 106/62 96 Room Air 01/07/17 13:56 88 16 103/66 93 Room Air 01/07/17 11:55 89 16 103/54 97 Room Air I/O 01/07/17 01/07/17 01/07/17 01/08/17 01/08/17 01/08/17 07:00 15:00 23:00 07:00 15:00 23:00 Intake Total 240 ml Output Total 1450 ml Balance -1210 ml Intake Oral 240 ml Output Urine Total 1450 ml Bladder Scan Volume Amount 326 ml Result Diagram: 01/08/17 0621 01/08/17 0621 Imaging Last Impressions Chest Ultrasound 01/08/17 0000 Signed Impressions: Service Date/Time: Sunday, January 08, 2017 08:53 - CONCLUSION: Small amount of right-sided pleural fluid, inadequate for drainage.. Roro Story MD Lung Scan- Nuclear Medicine 01/07/17 1258 Signed Impressions: Service Date/Time: Saturday, January 07, 2017 14:26 - CONCLUSION: 1. Examination is negative for pulmonary embolus. Xiang Johnson MD Chest X-Ray 01/07/17 0946 Signed Impressions: Service Date/Time: Saturday, January 07, 2017 10:35 - CONCLUSION: Bibasilar infiltrates and effusions. Luis Campoverde MD Chest CT 01/07/17 0000 Signed Impressions: Service Date/Time: Saturday, January 07, 2017 17:09 - CONCLUSION: 1. Small bilateral pleural effusions with concomitant atelectasis/airspace disease. 2. Old granulomatous disease with subcentimeter granuloma in the left lingula/ lung base and left hilar lymph nodes. 3. Patient is status post cholecystectomy. Home Kohler MD Objective Remarks GENERAL: Alert, NAD. SKIN: Warm and dry. HEAD: Normocephalic. EYES: No scleral icterus. No injection or drainage. NECK: Supple, trachea midline. No JVD or lymphadenopathy. CARDIOVASCULAR: Regular rate and rhythm without murmurs, gallops, or rubs. RESPIRATORY: Breath sounds equal bilaterally. No accessory muscle use. GASTROINTESTINAL: Abdomen soft, non-tender, nondistended. MUSCULOSKELETAL: No cyanosis, or edema. BACK: Nontender without obvious deformity. No CVA tenderness. Procedures None A/P Problem List: (1) Pneumonia ICD Code: J18.9 Status: Acute (2) Bilateral pleural effusion ICD Code: J90 Status: Acute (3) Hemoptysis ICD Code: R04.2 Status: Acute (4) Ovarian cancer ICD Code: C56.9 Status: Acute (5) Seizure disorder ICD Code: G40.909 Status: Chronic Assessment and Plan Ms. Segura is a 47 year old female with a recent history of Ovarian cancer s/ p surgery who presents to the ED due to shortness of breach, cough with bloody sputum production and subjective low grade fever. Radiological studies indicate no PE but shows bilateral pleural effusion as well as bilateral infiltrates. - Hemoptysis - Bilateral pleural effusion - Bilateral pneumonia - CXR, CT Chest reviewed by me on 01/07/2017 - shows bilateral infiltrates and bilateral pleural effusion. - Will start patient on Ceftriaxone 2g Q24hrs IV and Levaquin 750mg Qday PO. - Per pulm, patient on Solu-medrol IV. - Chest US shows inadequate amount of fluid for thoracentesis. - Urinary retention - Hematuria - Insert Herrera catheter. Obtain UA/Urine culture. - Hypertension - Continue Lisinopril 10mg Qday. - Seizure disorder - Continue Depakote 1000mg QHS and Dilantin 300mg QHS. - GERD - continue PPI. Full code. SCDs for now. No Pharmacological DVT prophylaxis due to hemoptysis. Discussed today with Dr. Leone. Melissa Gandhi DO Jan 08, 2017 9:57 am
--- NOTE | 2017-01-08 10:57 | EKG ---
Date Performed: 01/07/2017 Time Performed: 10:07:36 PTAGE: 47 years EKG: Sinus rhythm NORMAL ECG INTERPRETATION BASED ON A DEFAULT AGE OF 40 YEARS NO PREVIOUS TRACING DOCTOR: Francia Yang Interpretating Date/Time 01/08/2017 10:55:35
--- NOTE | 2017-01-08 13:46 | MB ---
cc: LETICIA ZAMBRANO DATE OF CONSULTATION: 01/07/2017 REASON FOR CONSULTATION: Hemoptysis and pulmonary infiltrates. PRESENT ILLNESS This is a 47-year-old lady with a prior history of ovarian carcinoma was admitted through the emergency room with cough and hemoptysis which started yesterday. The patient has been on active therapy by Dr. Franco for ovarian cancer and had surgery done last week. She was having some left-sided chest pain and pain of taking deep breaths and having hemoptysis which she states was feeling up a wash cloth. But upon arrival in the ER she was coughing up streaky blood the patient denied nausea, vomiting or hematemesis. She denied fevers or chills. She was unable to take deep breaths and thus arrived in the ER where a CT of the chest was done and a VQ lung scan was done. The VQ lung scan that showed no evidence of pulmonary emboli and this CT chest showed evidence of while with bibasilar pulmonary infiltrates with atelectasis and bilateral pleural effusions an old granulomatous disease. The patient is coughing up a grayish yellow mucous with an active smoker and has had a previous history of bronchitis and pneumonia. PAST HISTORY 1. Includes history of ovarian cancer 2. history of manic depression 3. history of cardiac valves infection 4. she does have a history of TIA in the past 5. headaches 6. also has had seizures in the past. PAST SURGICAL HISTORY: 1. Surgery also includes D & C 2. history of ectopic 3. Surgery also includes cholecystectomy 4. left eye surgery 5. laser surgery of the left kidney 6. sinus surgery. 7. She had a in the past. HABITS The patient smoked one-pack per day has done so for over 20 years. Alcohol use occasional. FAMILY HISTORY Hyperlipidemia ALLERGIES ASPIRIN PENICILLIN TYLENOL BETADINE LATEX IODINE IBUPROFEN MEDICATIONS: 1. Cipro 2. Hydromorphone 3. Zofran 4. lisinopril 5. Prilosec 6. Depakote 7. Dilantin REVIEW OF SYSTEMS The patient has been overweight. She has no leg swelling. Denies abdominal pains. She does have chest pains and trouble taking deep breaths. She has urinary frequency. She has depression and anxiety. No skin lesions, other system review is negative. PHYSICAL EXAMINATION IN GENERAL: This moderately obese, middle-aged lady, anxious and mildly dyspneic at rest. VITAL SIGNS: Blood pressure 110/60, pulse 85. Respirations 20, temperature 97.5 HEAD, EYES, EARS, NOSE, AND THROAT: Head normocephalic. Pupils reactive. Tongue is moist. Throat is mildly injected. NECK: Supple. No bruits or thyroid enlargement. CHEST: Chest tube coarse wheezes throughout both lung fox and crackles heard at the lung bases. HEART: The heart sounds are regular S1-S2. No murmur. No S3. ABDOMEN: The abdomen is soft, protuberant. No masses or organomegaly. There is tenderness in the upper abdomen as well as the lower abdomen. Bowel sounds are active. EXTREMITIES: Minimal edema and decreased pulses. Reflexes are 1+ with no gross motor deficits. The patient is alert and oriented and cooperative and seems anxious. IMPRESSION: 1. Bibasilar pulmonary infiltrates with pneumonia and atelectasis. 2. Hemoptysis secondary to <<5:23>> 3. History of ovarian cancer. 4. Bilateral pleural effusions. 5. COPD. PLAN The patient will be maintained on antibiotic coverage which was started including Levaquin 750 mg p.o. daily, Rocephin 2 grams IV daily, Solu-Medrol 40 mg IV q.12 h sputum will be sent for Gram stain and culture and nebulized DuoNeb solution added q.i.d. and we will also place her on oxygen at 2-3 liters nasal cannula ultrasound examination of the chest with effusions to be done and a thoracentesis will be planned. There is significant fluid present a coagulation profile will also be ordered. Thank you <<6:20>> for this consultation. MD MARICARMEN Saxena/mario /8:07 PM /1:13 PM
[2017-01-08] MEDS: cefTRIAXone INJ 2,000 MG in SODIUM CHLORIDE 0.9% INJ 100 ML IV SCH (18:00)
[2017-01-08] MEDS: LEVOFLOXACIN 750 MG TAB PO SCH (18:00)
--- NOTE | 2017-01-08 19:08 | HHI.PR ---
Subjective Remarks Weak but breathing better. On O2 2l. No fever or hemoptysis. Objective Vital Signs Date Time Temp Pulse Resp B/P Pulse Ox O2 Delivery O2 Flow Rate FiO2 01/08/17 16:35 95.8 81 17 109/63 96 01/08/17 13:05 97.6 84 17 111/65 97 01/08/17 08:44 97 Nasal Cannula 2.00 01/08/17 08:37 96.6 84 19 117/71 95 01/08/17 05:58 97.7 81 17 116/65 98 01/08/17 01:40 98.9 86 18 110/58 98 01/08/17 01:06 100.0 85 17 120/67 97 01/07/17 23:30 98.2 84 18 109/62 96 Nasal Cannula 2 01/07/17 23:00 98.2 84 18 106/59 97 Nasal Cannula 2 01/07/17 22:53 98.1 88 18 102/58 100 Nasal Cannula 2 01/07/17 21:53 98.7 89 20 102/57 97 Nasal Cannula 2 01/07/17 21:36 98.0 81 18 101/57 96 Nasal Cannula 2 01/07/17 20:45 98.0 87 16 104/59 98 Nasal Cannula 2 01/07/17 19:52 96 Nasal Cannula 2.00 01/07/17 19:27 87 18 106/62 96 Room Air I/O 01/07/17 01/07/17 01/07/17 01/08/17 01/08/17 01/08/17 07:00 15:00 23:00 07:00 15:00 23:00 Intake Total 240 ml 240 ml Output Total 1450 ml Balance -1210 ml 240 ml Intake Oral 240 ml 240 ml Output Urine Total 1450 ml Bladder Scan Volume Amount 326 ml Result Diagram: 01/08/1762001/08/17620 Objective Remarks IN GENERAL: This moderately obese, middle-aged lady, anxious and mildly dyspneic at rest. HEAD, EYES, EARS, NOSE, AND THROAT: Head normocephalic. Pupils reactive. Tongue is moist. Throat is mildly injected. NECK: Supple. No bruits or thyroid enlargement. CHEST: Chest tube coarse wheezes throughout both lung fox and crackles heard at the lung bases. HEART: The heart sounds are regular S1-S2. No murmur. No S3. ABDOMEN: The abdomen is soft, protuberant. No masses or organomegaly. There is tenderness in the upper abdomen as well as the lower abdomen. Bowel sounds are active. EXTREMITIES: Minimal edema and decreased pulses. Reflexes are 1+ with no gross motor deficits. The patient is alert and oriented .No gross deficits Assessment and Plan Assessment and Plan IMPRESSION: 1. Bibasilar pulmonary infiltrates with pneumonia and atelectasis. 2. Hemoptysis secondary to <<5:23>> 3. History of ovarian cancer. 4. Bilateral pleural effusions. 5. COPD. Plan : 1. Cont antibiotics Rocephin 2. Nebs qid , duoneb. 3. O2 at 2 L. 4. Will get US of chest for fluid. 5. Cont Pain meds. 6. IS at bedside q2h Loni Leone MD Jan 08, 2017 19:08
[2017-01-08] MEDS: PHENYTOIN SODIUM 100 MG CAP PO SCH (20:36)
[2017-01-08] MEDS: DIVALPROEX SODIUM E.R. 500 MG TAB PO SCH (20:37)
[2017-01-08] MEDS: PANTOPRAZOLE SOD 20 MG DELAYED RELEASE TAB PO SCH (20:37)
[2017-01-08] MEDS: MORPHINE SULFATE 4 MG/ML INJ IV PUSH PRN (22:56)
[2017-01-09] VITALS (8 sets, daily range): BP systolic 106–154; BP diastolic 65–84; PULSE 65–101; RESP 17–20; TEMP 95.8–98.6; O2SAT 94–99
[2017-01-09] MEDS: MORPHINE SULFATE 4 MG/ML INJ IV PUSH PRN ×4 (05:12→21:50)
[2017-01-09] MEDS: SODIUM CHLOR 0.9% 1000 ML INJ 1,000 ML IV SCH ×2 (07:55→17:55)
[2017-01-09] MEDS: RESP: ALBUTEROL 2.5 MG/IPRATROPIUM 0.5 MG NEB (SCH) NEB ×4 (08:11→20:54)
[2017-01-09] MEDS: SODIUM CHLORIDE 0.9% FLUSH 10 ML FLUSH IV FLUSH SCH ×2 (09:00→20:50)
[2017-01-09] MEDS: ONDANSETRON HCL 4 MG/2 ML VIAL IVP PRN ×3 (09:27→21:49)
[2017-01-09] MEDS: methylPREDNISolone SOD SUCC 40 MG/1 ML VIAL IV PUSH SCH (09:38)
[2017-01-09] MEDS: LISINOPRIL 10 MG TAB PO SCH (09:38)
[2017-01-09] MEDS ORDERED: PRED5TAB PO (14:52)
[2017-01-09] MEDS ORDERED: LEVA750T PO (14:52)
--- NOTE | 2017-01-09 14:53 | HHI.PR ---
Subjective Remarks Follow up for pneumonia, hemoptysis. Ms. Segura is doing well. No further hemoptysis. No fever, chills. Objective Vitals Vital Signs Date Time Temp Pulse Resp B/P Pulse Ox O2 Delivery O2 Flow Rate FiO2 01/09/17 12:14 95.8 70 17 106/65 98 01/09/17 09:33 15 01/09/17 08:18 97.9 65 17 120/73 99 01/09/17 08:13 99 Nasal Cannula 2.00 01/09/17 06:15 98.6 75 20 112/65 97 01/09/17 00:15 98.1 80 17 110/69 97 01/08/17 20:15 97.4 79 18 105/62 98 01/08/17 20:15 98 Nasal Cannula 2.00 01/08/17 16:35 95.8 81 17 109/63 96 I/O 01/08/17 01/08/17 01/08/17 01/09/17 01/09/17 01/09/17 07:00 15:00 23:00 07:00 15:00 23:00 Intake Total 240 ml 720 ml 800 ml 900 ml Output Total 1450 ml 300 ml 1500 ml Balance -1210 ml 720 ml 500 ml -600 ml Intake Oral 240 ml 720 ml 800 ml 900 ml Output Urine Total 1450 ml 300 ml 1500 ml # Voids 2 # Bowel Movements 0 0 Result Diagram: 01/08/17 0621 01/08/17 0621 Imaging Last Impressions Chest Ultrasound 01/08/17 0000 Signed Impressions: Service Date/Time: Sunday, January 08, 2017 08:53 - CONCLUSION: Small amount of right-sided pleural fluid, inadequate for drainage.. Roro Story MD Lung Scan-V Nuclear Medicine 01/07/17 1258 Signed Impressions: Service Date/Time: Saturday, January 07, 2017 14:26 - CONCLUSION: 1. Examination is negative for pulmonary embolus. Xiang Johnson MD Chest X-Ray 01/07/17 0946 Signed Impressions: Service Date/Time: Saturday, January 07, 2017 10:35 - CONCLUSION: Bibasilar infiltrates and effusions. Luis Campoverde MD Chest CT 01/07/17 0000 Signed Impressions: Service Date/Time: Saturday, January 07, 2017 17:09 - CONCLUSION: 1. Small bilateral pleural effusions with concomitant atelectasis/airspace disease. 2. Old granulomatous disease with subcentimeter granuloma in the left lingula/ lung base and left hilar lymph nodes. 3. Patient is status post cholecystectomy. Home Kohler MD Objective Remarks GENERAL: Alert, NAD. SKIN: Warm and dry. HEAD: Normocephalic. EYES: No scleral icterus. No injection or drainage. NECK: Supple, trachea midline. No JVD or lymphadenopathy. CARDIOVASCULAR: Regular rate and rhythm without murmurs, gallops, or rubs. RESPIRATORY: Breath sounds equal bilaterally. No accessory muscle use. GASTROINTESTINAL: Abdomen soft, non-tender, nondistended. MUSCULOSKELETAL: No cyanosis, or edema. BACK: Nontender without obvious deformity. No CVA tenderness. Procedures None A/P Problem List: (1) Pneumonia ICD Code: J18.9 Status: Acute (2) Bilateral pleural effusion ICD Code: J90 Status: Acute (3) Hemoptysis ICD Code: R04.2 Status: Acute (4) Ovarian cancer ICD Code: C56.9 Status: Acute (5) Seizure disorder ICD Code: G40.909 Status: Chronic Assessment and Plan Ms. Segura is a 47 year old female with a recent history of Ovarian cancer s/ p surgery who presents to the ED due to shortness of breach, cough with bloody sputum production and subjective low grade fever. Radiological studies indicate no PE but shows bilateral pleural effusion as well as bilateral infiltrates. - Hemoptysis - Bilateral pleural effusion - Bilateral pneumonia - CXR, CT Chest reviewed by me on 01/07/2017 - shows bilateral infiltrates and bilateral pleural effusion. - Will start patient on Ceftriaxone 2g Q24hrs IV and Levaquin 750mg Qday PO. - Per pulm, patient on Solu-medrol IV. We will switch to PO prednisone today. - Chest US shows inadequate amount of fluid for thoracentesis. - Home O2 walk test. If indicated, we will arrange home O2. - Urinary retention - Hematuria - Remove gipson cath in the AM. - Hypertension - Continue Lisinopril 10mg Qday. - Seizure disorder - Continue Depakote 1000mg QHS and Dilantin 300mg QHS. - GERD - continue PPI. Full code. SCDs for now. No Pharmacological DVT prophylaxis due to hemoptysis. Discussed today with Dr. Leone. Likely discharge on 01/10/2017. Melissa Gandhi DO Jan 09, 2017 14:53
[2017-01-09] MEDS: LEVOFLOXACIN 750 MG TAB PO SCH (18:36)
[2017-01-09] MEDS: cefTRIAXone INJ 2,000 MG in SODIUM CHLORIDE 0.9% INJ 100 ML IV SCH (18:37)
[2017-01-09] MEDS: PHENYTOIN SODIUM 100 MG CAP PO SCH (20:49)
[2017-01-09] MEDS: PANTOPRAZOLE SOD 20 MG DELAYED RELEASE TAB PO SCH (20:49)
[2017-01-09] MEDS: predniSONE 20 MG TAB PO SCH (20:49)
[2017-01-09] MEDS: DIVALPROEX SODIUM E.R. 500 MG TAB PO SCH (20:50)
[2017-01-10 00:45] VITALS: BP 115/75; PULSE 88; RESP 21; TEMP 98.1; O2SAT 97
[2017-01-10] MEDS: MORPHINE SULFATE 4 MG/ML INJ IV PUSH PRN ×2 (03:20→12:14)
[2017-01-10] MEDS: SODIUM CHLOR 0.9% 1000 ML INJ 1,000 ML IV SCH (03:55)
[2017-01-10 05:00] VITALS: BP 120/92; PULSE 88; RESP 19; TEMP 98; O2SAT 98
[2017-01-10 08:00] VITALS: BP 107/63; PULSE 78; RESP 20; TEMP 97.1; O2SAT 95
[2017-01-10] MEDS: RESP: ALBUTEROL 2.5 MG/IPRATROPIUM 0.5 MG NEB (SCH) NEB ×2 (08:01→11:26)
[2017-01-10 08:02] VITALS: O2SAT 95
[2017-01-10] MEDS: predniSONE 20 MG TAB PO SCH (09:23)
[2017-01-10] MEDS: LISINOPRIL 10 MG TAB PO SCH (09:23)
[2017-01-10] MEDS: ONDANSETRON HCL 4 MG/2 ML VIAL IVP PRN (09:24)
--- NOTE | 2017-01-10 09:24 | PD.PN.STU ---
Subjective Remarks Feeling well, no complaints. Ready to be D/C home. Off O2 sat 95. No fevers, no hemoptysis. Objective Vitals Vital Signs Date Time Temp Pulse Resp B/P Pulse Ox O2 Delivery O2 Flow Rate FiO2 01/10/17 08:02 95 21 01/10/17 08:00 97.1 78 20 107/63 95 01/10/17 05:00 98.0 88 19 120/92 98 01/10/17 00:45 98.1 88 21 115/75 97 01/09/17 21:00 97.9 76 20 106/66 98 01/09/17 20:54 94 01/09/17 17:00 15 01/09/17 16:19 96.9 101 18 154/84 98 01/09/17 12:14 95.8 70 17 106/65 98 I/O 01/09/17 01/09/17 01/09/17 01/10/17 01/10/17 01/10/17 07:00 15:00 23:00 07:00 15:00 23:00 Intake Total 900 ml 800 ml 1100 ml 2000 ml Output Total 1500 ml 750 ml 1250 ml Balance -600 ml 800 ml 350 ml 750 ml Intake Oral 900 ml 800 ml 1100 ml 2000 ml Output Urine Total 1500 ml 750 ml 1250 ml # Bowel Movements 0 2 0 Result Diagram: 01/08/1762001/08/17620 Objective Remarks IN GENERAL: This moderately obese, middle-aged lady, anxious and mildly dyspneic at rest. HEAD, EYES, EARS, NOSE, AND THROAT: Head normocephalic. Pupils reactive. Tongue is moist. Throat is mildly injected. NECK: Supple. No bruits or thyroid enlargement. CHEST: Clear to auscultation throughout, no wheezes, no crackles. HEART: The heart sounds are regular S1-S2. No murmur. No S3. ABDOMEN: The abdomen is soft, protuberant. No masses or organomegaly. There is tenderness in the upper abdomen as well as the lower abdomen s/p surgery with Dr. Franco. Bowel sounds are active. EXTREMITIES: Minimal edema and decreased pulses. Reflexes are 1+ with no gross motor deficits. The patient is alert and oriented .No gross deficits A/P Assessment and Plan IMPRESSION: 1. Bibasilar pulmonary infiltrates with pneumonia and atelectasis. 2. Hemoptysis secondary to RESOLVED. 3. History of ovarian cancer. 4. Bilateral pleural effusions. 5. COPD. Plan : 1. Cont antibiotics PO per ID 2. Continue 20mg Prednisone BID with taper at OP 3. Nebs qid , duoneb. 4. D/C home today 5. Follow up with Dr. Franco as outpatient. Aracely Moscoso M3 Jan 10, 2017 09:24
[2017-01-10] MEDS: SODIUM CHLORIDE 0.9% FLUSH 10 ML FLUSH IV FLUSH SCH (09:29)
[2017-01-10 12:00] VITALS: BP 113/61; PULSE 86; RESP 20; TEMP 97.6; O2SAT 97
--- NOTE | 2017-01-10 13:24 | HHI.DS ---
Discharge Summary Admission Date Jan 07, 2017 at 15:57 Discharge Date: Jan 10, 2017 Admitting Diagnosis symptomatic anemia/chest pain/possible pneumonia (1) Pneumonia ICD Code: J18.9 Diagnosis: Principal (2) Bilateral pleural effusion ICD Code: J90 Diagnosis: Principal (3) Hemoptysis ICD Code: R04.2 (4) Ovarian cancer ICD Code: C56.9 (5) Seizure disorder ICD Code: G40.909 Procedures None Brief History - From Admission Ms. Segura is a 47 year old female with a recent history of Ovarian cancer s/ p surgery last week who presents to the ED due to shortness of breath, cough and hemoptysis. She initially had shortness of breath and non-bloody cough. However, in the last few days, she has started having hemoptysis. She reports low grade fever at home. She also noted hematuria as well as inability to urinate since 6:30AM. Denies any changes in bowel habits. Patient underwent V/Q scan in the ED which showed no pulmonary embolism. Patient is allergic to contrast and thus CT PE was not obtained. CXR showed bibasilar infiltrates. Later, we obtained CT chest without contrast which showed infiltrates as well bilateral pleural effusion. CBC/BMP: 01/08/17 0621 01/08/17 0621 Significant Findings Laboratory Tests Test 01/08/17 06:21 White Blood Count 14.2 TH/MM3 (4.0-11.0) Red Blood Count 3.34 MIL/MM3 (4.00-5.30) Hemoglobin 11.0 GM/DL (11.6-15.3) Hematocrit 31.9 % (35.0-46.0) Red Cell Distribution Width 21.0 % (11.6-17.2) Neutrophils (%) (Auto) 85.9 % (16.0-70.0) Lymphocytes (%) (Auto) 8.6 % (9.0-44.0) Neutrophils # (Auto) 12.2 TH/MM3 (1.8-7.7) Neutrophils % (Manual) 79 % (16-70) Lymphocytes % 7 % (9-44) Neutrophils # (Manual) 11.9 TH/MM3 (1.8-7.7) Metamyelocytes 2 % (0-1) Myelocytes 1 % (0-0) Sodium Level 133 MEQ/L (136-145) Creatinine 0.46 MG/DL (0.50-1.00) Random Glucose 134 MG/DL (74-106) Imaging Last Impressions Chest Ultrasound 01/08/17 0000 Signed Impressions: Service Date/Time: Sunday, January 08, 2017 08:53 - CONCLUSION: Small amount of right-sided pleural fluid, inadequate for drainage.. Roro Story MD Lung Scan-V Nuclear Medicine 01/07/17 1258 Signed Impressions: Service Date/Time: Saturday, January 07, 2017 14:26 - CONCLUSION: 1. Examination is negative for pulmonary embolus. Xiang Johnson MD Chest X-Ray 01/07/17 0946 Signed Impressions: Service Date/Time: Saturday, January 07, 2017 10:35 - CONCLUSION: Bibasilar infiltrates and effusions. Luis Campoverde MD Chest CT 01/07/17 0000 Signed Impressions: Service Date/Time: Saturday, January 07, 2017 17:09 - CONCLUSION: 1. Small bilateral pleural effusions with concomitant atelectasis/airspace disease. 2. Old granulomatous disease with subcentimeter granuloma in the left lingula/ lung base and left hilar lymph nodes. 3. Patient is status post cholecystectomy. Home Kohler MD PE at Discharge GENERAL: Alert, NAD. SKIN: Warm and dry. HEAD: Normocephalic. EYES: No scleral icterus. No injection or drainage. NECK: Supple, trachea midline. No JVD or lymphadenopathy. CARDIOVASCULAR: Regular rate and rhythm without murmurs, gallops, or rubs. RESPIRATORY: Breath sounds equal bilaterally. No accessory muscle use. GASTROINTESTINAL: Abdomen soft, non-tender, nondistended. MUSCULOSKELETAL: No cyanosis, or edema. BACK: Nontender without obvious deformity. No CVA tenderness. Pt update on day of discharge Ms. Segura is doing well. She is in a lot of pain after moving. No fever, chills. Wants to go home. Hospital Course Ms. Segura is a 47 year old female with a recent history of Ovarian cancer s/ p surgery who presents to the ED due to shortness of breach, cough with bloody sputum production and subjective low grade fever. Radiological studies indicate no PE but shows bilateral pleural effusion as well as bilateral infiltrates. - Hemoptysis - Bilateral pleural effusion - Bilateral pneumonia - CXR, CT Chest reviewed by me on 01/07/2017 - shows bilateral infiltrates and bilateral pleural effusion. - Patient received Ceftriaxone 2g Q24hrs IV and Levaquin 750mg Qday PO. - Per pulm, patient on Solu-medrol IV. We will switch to PO prednisone today. - Chest US shows inadequate amount of fluid for thoracentesis. - Home O2 walk test indicated no need for home O2. - Urinary retention - Hematuria - Remove Herrera cath. No further hematuria. - Hypertension - Continue Lisinopril 10mg Qday. - Seizure disorder - Continue Depakote 1000mg QHS and Dilantin 300mg QHS. - GERD - continue PPI. Patient is being discharged today, follow up with Dr. Leone in 2 weeks. Pt Condition on Discharge: Good Discharge Disposition: Discharge Home Discharge Time: > 30 minutes Discharge Instructions DIET: Follow Instructions for: As Tolerated, No Restrictions Activities you can perform: Regular-No Restrictions Follow up Referrals: Pulmonology - 2 Weeks with Loni Leone MD New Medications: Prednisone (Prednisone) 5 Mg Tab 5 MG PO DAILY Take 4 tablets (20mg) Qday X 3 days THEN Take 3 tablets (15mg) Qday X 3 days THEN Take 2 tablets (10mg) Qday X 3 days THEN Take 1 tablet (5mg ) Qday X 3 days THEN STOP. Inflammation #30 Ref 0 TAB Levofloxacin (Levaquin) 750 Mg Tab 750 MG PO Q24H Infection #10 TAB Continued Medications: Divalproex ER (Depakote ER) 500 Mg Zee 1000 MG PO HS Control Seizures #60 Ref 0 TAB Hydromorphone (Hydromorphone) 4 Mg Tab 4 MG PO Q4H PRN PAIN Ref 0 TAB Lisinopril (Lisinopril) 10 Mg Tab 10 MG PO DAILY #30 Ref 0 TAB Morphine IR (Morphine IR) 15 Mg Tab 15 MG PO Q6HR PRN PAIN Ref 0 TAB Omeprazole (Prilosec) 20 Mg Cap 20 MG PO HS #30 Ref 0 CAP Ondansetron (Zofran) 4 Mg Tab 4 MG PO Q6HR PRN NAUSEA OR VOMITING Ref 0 TAB Orphenadrine ER 12 HR (Orphenadrine ER 12 HR) 100 Mg Tab 100 MG PO Q12HR Muscle Spasm #60 Ref 0 TAB Phenytoin Extended (Dilantin) 100 Mg Cap 300 MG PO HS Control Seizures #270 Ref 0 CAP Discontinued Medications: Ciprofloxacin (Ciprofloxacin) 250 Mg Tab 250 MG PO DAILY Infection Days 7 Ref 0 TAB Naproxen Sodium (Aleve) 220 Mg Tab 440 MG PO BID PRN Pain Management Ref 0 TAB Melissa Gandhi DO Jan 10, 2017 1:24 pm
[2017-01-10] MEDS ORDERED: MSIR15 PO (13:26)
== END 2017-01-10 13:59 | disposition home or self-care (01) | DRG 190 ==
LOC: NEPE 09:38 → NEDH 15:57 → N05A 01-08 00:20
PROVIDERS: ADMIT Hospitalist; ATTEND Hospitalist
DX: J44.0 Chronic obstructive pulmonary disease with (acute) lower respiratory infection (principal); J18.9 Pneumonia, unspecified organism; J91.8 Pleural effusion in other conditions classified elsewhere; C56.9 Malignant neoplasm of unspecified ovary; F32.9 Major depressive disorder, single episode, unspecified; F41.9 Anxiety disorder, unspecified; D64.9 Anemia, unspecified; F17.210 Nicotine dependence, cigarettes, uncomplicated; G40.909 Epilepsy, unspecified, not intractable, without status epilepticus; R33.9 Retention of urine, unspecified; K21.9 Gastro-esophageal reflux disease without esophagitis; R31.9 Hematuria, unspecified
CPT/HCPCS: 36430; 71010; 71250; 76604; 78582; 80048; 80053; 83605; 83690; 85007; 85025; 85027; 85610; 85730; 86850; 86900; 86901; 86920; 87040; 93005; 94150; 94620; 94640; 94664; 96361; 96374; 96375; A9540; A9567; J0696; J1170; J1956; J2270; J2405; J2920; J7030; J7040; J7050; J7512; P9016